=== PATIENT | female | born 1955 | race Caucasian/White ===

== ENCOUNTER 2018-07-28 06:55 | Inpatient (IN) | payer MEDICARE, OTHER ==
[2018-07-28 08:06] LABS: #Lymphocytes 0.7 thou/uL (1.20-3.40); #Monocytes 0.3 thou/uL (0.11-0.59); #Neutrophils 6.5 thou/uL (1.40-6.50); %Basophils 0.3 % (0.0-1.0); %Eosinophils 0.5 % (0.0-10.0); %Lymphocytes 9.7 % (21.0-51.0); %Monocytes 4.4 % (0.0-10.0); %Neutrophils 85.1 % (42.0-75.0); Mean Corpuscular HGB CONC 34.5 g/dL (32.0-36.0); Mean Corpuscular Hemoglobin 33.2 pg (27.0-31.0); Mean Corpuscular Volume 96.1 fL (78.0-98.0); Mean Platelet Volume 6.1 fL (7.4-10.4); Platelet Count 330 thou/uL (130-400); RBC Distribution Width 13.2 % (11.5-14.5); Red Blood Cell (RBC) Count 3.92 mill/uL (4.20-5.40); White Blood Cell (WBC) Count 7.6 thou/uL (4.8-10.8)
[2018-07-28 08:24] LABS: ALT (SGPT) 15 U/L (8-55); AST (SGOT) 23 U/L (5-34); Albumin 4.1 g/dL (3.4-4.8); Alkaline Phosphatase 103 U/L (40-150); Anion Gap 16 mmol/L (10-20); BUN (Urea Nitrogen) 16 mg/dL (9.8-20.1); Bilirubin, Total 0.5 mg/dL (0.2-1.2); Calc. Creatinine Clearance 0 mL/min (70-130); Calcium 9.3 mg/dL (7.8-10.44); Carbon Dioxide 22 mmol/L (23-31); Chloride 105 mmol/L (98-107); Estimated GFR-MDRD 79; Globulin 2.9 g/dL (2.4-3.5); Glucose 97 mg/dL (80-115); Potassium 4.1 mmol/L (3.5-5.1); Sodium 139 mmol/L (136-145)
[2018-07-28 08:25] LABS: Bilirubin Negative (Negative); Blood, Urine Small (Negative); Clarity CLOUDY (Clear); Glucose, Urine (Dipstick) Negative (Negative); Leukocyte Negative (Negative); Nitrite Negative (Negative); Protein, Urine (Dipstick) Negative (Neg-Trace); Specific Gravity, Urine 1.018 (1.002-1.036); Urobilinogen 0.2 mg/dL (0.2-1.0)
[2018-07-28 08:27] LABS: Bacteria/HPF None Seen HPF (None Seen)
[2018-07-28 08:57] LABS: Hyaline Casts/LPF 0-3 HYALINE CAST LPF (0-3 Hyaline); Manual Microscopic Reviewed? No Path Casts Seen; Renal Epithelial 0-3 HPF (0-3)
[2018-07-28] MEDS ORDERED: ISOVUE-370 76%-LOCM 1 ML ONE (10:16)
[2018-07-28] MEDS ORDERED: Gadobenate Dimeglumine 529 MG/1 ML (20ML VIAL) ONE (10:19)
--- NOTE | 2018-07-28 10:19 | CT ---
CT ANGIO OF HEAD PERFORMED WITH AND WITHOUT CONTRAST ENHANCEMENT CT ANGIO OF NECK PERFORMED WITH INTRAVENOUS CONTRAST ENHANCEMENT 3D RECONSTRUCTIONS: Date: 07/28/18 HISTORY: Left-sided weakness. FINDINGS: The lung apices are clear. The thyroid gland appears unremarkable. No significant jugular chain adeno carlos manuel. Parotid and submandibular gland regions appear unremarkable. Parapharyngeal spaces are clear. Angiographic portion of the examination yielded a satisfactory study. There is a separate origin of t he left common carotid artery from the aortic arch. The vertebral arteries are fairly codominant, lef t slightly larger than the right. On the right side, the right common internal and external iliac arteries are normal in appearance. No evidence of any significant stenosis by NASCET criteria. The left common carotid artery, internal and external carotid arteries also show no evidence of any s ignificant narrowing. CT angio of head was performed with intravenous contrast enhancement with 3D reconstructions. The ant erior and middle cerebral arteries and their branches are normal in appearance. Vertebrobasilar syste m appears unremarkable. There appears to be a complete samish of [place] present. CT of head was performed without contrast enhancement. The ventricular and cisternal system is within normal limits for age. No intracerebral hemorrhage or extra-axial fluid collections. IMPRESSION: Essentially unremarkable CT angio of head and neck. POS: [facility]
[2018-07-28] MEDS ORDERED: Ondansetron PF 4 MG/2 ML Vial ONE (10:51)
[2018-07-28] MEDS ORDERED: Bisacodyl 5 MG TAB PO PRN (11:11)
[2018-07-28] MEDS ORDERED: Senokot S 8.6-50 MG TAB PO PRN (11:11)
[2018-07-28] MEDS ORDERED: Acetaminophen 325 MG TAB PO PRN (11:11)
[2018-07-28] MEDS ORDERED: Ondansetron PF 4 MG/2 ML Vial IVP PRN (11:11)
[2018-07-28] MEDS ORDERED: Calcium Carbonate 500 MG ChewTAB PO PRN (11:11)
[2018-07-28] MEDS ORDERED: Aspirin 325 mg Enteric Coated Tablet PO SCH (11:15)
[2018-07-28] MEDS ORDERED: Enoxaparin Sodium 40 MG/0.4 ML SYRINGE SC SCH (11:15)
[2018-07-28] MEDS ORDERED: Nitroglycerin 0.4 MG TAB (25 Tab Bottle) SL PRN (12:18)
[2018-07-28] MEDS ORDERED: Benzonatate 100 MG CAP PO PRN (12:18)
[2018-07-28] MEDS ORDERED: Sodium Chloride 0.65% Nasal 44 ML BOT EA NARE PRN (12:18)
[2018-07-28] MEDS ORDERED: cloNIDine 0.1 MG TAB PO PRN (12:18)
[2018-07-28] MEDS ORDERED: hydrALAZINE 20 MG/ML VIAL SLOW IVP PRN (12:18)
[2018-07-28] MEDS ORDERED: Diabetic Tussin 200 MG/10 ML UDCUP PO PRN (12:18)
[2018-07-28] MEDS ORDERED: Pantoprazole 40 MG VIAL IVP SCH (12:30)
[2018-07-28] MEDS ORDERED: azaTHIOprine 50 MG TAB PO SCH (12:30)
--- NOTE | 2018-07-28 13:11 | HP ---
PRIMARY CARE PHYSICIAN: Dr. Sung. CHIEF COMPLAINT: Left-sided weakness, nausea, and vomiting. HISTORY OF PRESENTING ILLNESS: Ms. Sosa is a 63-year-old female with past medical history of well-controlled ulcerative colitis, who presented to the [facility] with above-mentioned complaint of 1-day duration. History is mainly obtained by the patient herself, and electronic medical records have been reviewed. Ms. Sosa reports that she has been in her usual health up until the day before yesterday. She had some upset stomach yesterday, and then she started to have significant nausea and then she started to have vomiting. She became generalized weak and later noticed that her left side is weaker than the right side. With these symptoms, she was also having some associated dizziness and lightheadedness. No chest pain or recent illnesses. No shortness of breath. No lower extremity swelling. She denies any trouble with her swallowing. She did notice that her speech was somewhat slurred as well. When presented to outside emergency room, her blood pressure was 161/83, pulse of 78. Otherwise, she was hemodynamically stable. She underwent a 12-lead EKG, which was unremarkable. She was transferred to our facility for further workup after initial treatment with saline, IV fluid, and Zofran. She underwent a CT angio of the head and neck in our facility with her complaints of left-sided isolated weakness more than generalized weakness. This was unremarkable. She is now being admitted to rule out stroke with suspected TIA. PAST MEDICAL HISTORY: 1. Ulcerative colitis, in good control. She takes Lialda and azathioprine. 2. Hypothyroidism. 3. Hypertension. PAST SURGICAL HISTORY: 1. Ganglion cyst removal, right wrist, in April 1987. 2. Ovarian cyst removal in 1987. 3. Colonoscopies, she is due for next one. Her watch and clock maker and repairer is Dr. Mazariegos. PSYCHIATRIC HISTORY: No anxiety. No depression. SOCIAL HISTORY: She works in [employer] three times a week. Lives by herself. No history of drug, tobacco, or alcohol abuse. FAMILY HISTORY: Significant for stroke in both of her parents according to her. No family history of diabetes. Multiple family members with hypertension. ALLERGIES: SULFONAMIDES. CURRENT MEDICATIONS: 1. Azathioprine 150 mg daily. 2. Enalapril 10 mg daily. 3. Levothyroxine 50 mcg daily. 4. Mesalamine 1.2 g four tablets daily. REVIEW OF SYSTEMS: A 12-point review of system is done. It is negative except for those mentioned in the history and physical. LABORATORY DATA: Her CBC is within normal limit. She has neutrophilia with normal WBCs. ESR is 20. Serum chemistry is rather unremarkable. CRP is slightly elevated to 0.65. Urinalysis shows trace ketones and some wbc's without any bacteria. Multiple squamous and transitional epithelial cells were also seen. CT angio is negative for any evidence of stenosis or block. It is done for head as well as neck. A 12-lead EKG by my review shows no acute ST or T-wave changes. Normal sinus rhythm is seen. PHYSICAL EXAMINATION: VITAL SIGNS: Upon presentation, blood pressure 161/83, pulse of 78, respirations 16, saturating 95% on room air, and temperature 98.4. GENERAL: No acute distress. Awake, alert, and oriented x3. The patient does exhibit some tangential thinking and rambles on and is somewhat slow in answering the questions appropriately. HEENT: Mucous membrane is moist and pink. No oropharyngeal exudate or erythema. Head is normocephalic and atraumatic. Pupils equal, reactive to light and accommodation. NECK: Supple without any lymphadenopathy, JVD, or bruit. CHEST: Clear to auscultation without any wheezing, rales, or rhonchi. HEART: Rate and rhythm are regular without any murmurs, rubs, or gallops. ABDOMEN: Soft, nontender, and nondistended. No guarding, rebound, or rigidity. EXTREMITIES: Free of any cyanosis, clubbing, or edema. NEUROLOGICAL: She does have mild facial droop on the left side and somewhat obscuration of the left nasolabial fold. Her left arm strength is 4/5. She has weakness in the hand sub arc operator. Her left leg is also weaker more than the right. Strength is 3 to 4/5 in left leg. There is no weakness in the right side. Cranial nerve II through XII otherwise grossly intact. Finger-nose testing is slow. IMPRESSION AND PLAN: 1. Left-sided weakness. The patient's physical examination is concerning for a transient ischemic attack. We will admit her to stroke floor and do the stroke workup with a neurology consultation as well as stroke team consultation. We will put her on daily aspirin and obtain an echocardiogram and MRI as well. She will be started on gentle IV fluids given her nausea and vomiting. 2. Nausea and vomiting. Suspect a viral gastroenteritis type picture, which brought on the generalized weakness. We will start her on normal saline for hydration and use supportive and symptomatic care. 3. History of ulcerative colitis. We will restart her home medications once confirmed. 4. Hypertension. Restart home medications, but allow for permissive hypertension. 5. Hypothyroidism. We will restart her levothyroxine. 6. Deep venous thrombosis and gastrointestinal prophylaxis and p.r.n. medication orders. DISPOSITION: Ms. Sosa is being admitted to the hospital for TIA-like symptoms with left-sided weakness. Further management will depend upon her clinical course as well as the results of MRI, echocardiogram, and recommendations from neurology team. Currently, she is under observation status. Job ID: [id number]
[2018-07-28] MEDS ORDERED: Lorazepam 2 MG/ML VIAL ONE (13:52)
[2018-07-28] MEDS ORDERED: Aspirin 325 MG TAB ONE (14:44)
[2018-07-28] MEDS ORDERED: Enoxaparin Sodium 40 MG/0.4 ML SYRINGE ONE (14:44)
--- NOTE | 2018-07-28 15:14 | MRI ---
MRI BRAIN WITH AND WITHOUT IV CONTRAST: Date: 07/28/18 PROVIDED CLINICAL HISTORY: Left-sided weakness. FINDINGS: There is a focal area of restricted diffusion seen involving the right hemipons compatible with recen t infarction. No additional restricted diffusion is evident. Scattered punctate FLAIR and T2 hyperint ensity involves the cerebral white matter with confluent periventricular white matter hyperintensity compatible with chronic microvascular ischemic change. No evidence for intracranial hemorrhage. Appro priate flow-voids are seen within the major intracranial vessels. The extracranial soft tissues and c alvarial marrow signal demonstrate no significant abnormality. There is no abnormal contrast enhancem ent identified. IMPRESSION: 1. Restricted diffusion compatible with recent infarction involving the right hemipons. 2. Chronic microvascular ischemic change. POS: [facility]
--- NOTE | 2018-07-28 15:29 | CON ---
DATE OF CONSULTATION: 07/28/2018 CHIEF COMPLAINT: Acute stroke. HISTORY OF PRESENT ILLNESS: The patient is a 63-year-old lady, who has history of hypertension, ulcerative colitis, and thyroid dysfunction. She reported she started feeling dizzy and nauseous and went to the emergency room yesterday afternoon, and she reported to the ER doctor that she was having dizziness and nausea, but she also felt kind of weak in general, and she was seen there and initially she had hypertension and subsequently her blood pressure normalized and she was feeling better. Dizziness was better and the CT was performed, which did not show any acute stroke and therefore, she was discharged home. Yesterday, she reports she got worse when she got home and kept getting worse. She also has a neck pain on the right side. She then subsequently developed weakness on the left side and slurred speech. She never had a stroke in the past. She is generally quite healthy. No known history of dizziness or visual disturbance today. FAMILY HISTORY: Positive for her father passing away from an HI at 69. Mother of CVA at 92. She has 4 brothers and a sister. Sister has hypertension. PAST MEDICAL HISTORY: She has hypertension, ulcerative colitis, and hypothyroidism. HOME MEDICATIONS: She takes: 1. Thyroxine. 2. Mesalamine. 3. Vasotec. PAST SURGICAL HISTORY: Ganglion cyst removal in right wrist, ovariectomy on the right side in April 1987 and left-sided in August 1987, and she has had a few colonoscopies over the years. SOCIAL HISTORY: She is a retired animal care worker. Works part-time at [employer]. She lives by herself. She was at age of 21. Her son is 47 and is in senior living from what she knows he is quite healthy. LABORATORY WORKUP: White count 7.6, hemoglobin 13, hematocrit 37.7, platelet count 330. Sodium 139, potassium 4.1, chloride 105, bicarb 22, BUN 16, creatinine 0.74. UA was negative, and her MRI has been completed and pending final report at the time of this dictation. REVIEW OF SYSTEMS: PULMONARY: Normal. CARDIAC: Normal. GI: Positive for nausea yesterday. NEUROLOGIC: Positive for weakness and dizziness. GENITOURINARY: Negative. DERMATOLOGIC: Negative. ENDOCRINE: Positive for thyroid dysfunction. PHYSICAL EXAMINATION: GENERAL APPEARANCE: Well-built, well-nourished lady, who seems comfortable. Appears comfortable, but seems to be somewhat tired. VITAL SIGNS: Her blood pressure 161/83, pulse 78, respiration rate 16, O2 sats 95% on room air, and temperature 98.4. CHEST: Clear vesicular breathing. CARDIOVASCULAR: No murmurs were found. ABDOMEN: Soft and nontender. NEUROLOGIC: Higher intellectual function, awake and oriented x3. Appropriate conversation. Cranial nerves 2 through 12, normal pupillary reaction. She has mild facial asymmetry on the left side and she has tongue deviation to the left. Motor examination, bulk normal, tone normal, strength 4/5 in the right lower extremity and 5/5 in the right upper extremity. In the left arm, she had decreased strength of 1/5 and distal left lower extremity strength was 2/5 and proximal 3/5. There was some decreased effort based on our RN's evaluation since this is a telemedicine consult. Deep tendon reflexes were 2+ throughout. Sensory, normal touch and proprioception and her cerebellar, normal [id number]. [id number] could not be performed. [id number] could not be performed on the left side. Gait not testable. IMPRESSION: The patient with dizziness yesterday and she has had some left- sided weakness after she left the ER and went home and comes back to the hospital today. Due to the delay in presentation, no IV tPA was given and her MRI was completed , but pending report at this time. She has hypertension, hypothyroidism, and ulcerative colitis. She does not take aspirin at home. Her neurological examination showed weakness on the left side, but there was also decreased effort on the left side. MRI of brain report is pending, but it seems to show some white matter changes, and we will await on the official read to see if there is any acute infarct. RECOMMENDATIONS: Please start the patient on aspirin. Complete her stroke workup. If MRI brain is negative for acute infarct, please consider adding MRI of the C-spine to make sure any structural lesions are excluded. Call Neurology if there are any further questions. Job ID: [id number] [facility]
[2018-07-28 18:38] VITALS: BMI 37.4
[2018-07-28] MEDS: Atorvastatin Calcium 40 MG TAB PO SCH ×2 (21:58→22:13)
[2018-07-28] MEDS: Sodium Chloride 0.9% 1,000 ML IV SCH (21:58)
[2018-07-29] MEDS: Sodium Chloride 0.9% 1,000 ML IV SCH (00:08)
[2018-07-29] MEDS: Acetaminophen 500 MG TAB PO PRN ×3 (04:57→21:23)
[2018-07-29 05:25] LABS: Anion Gap 14 mmol/L (10-20); BUN (Urea Nitrogen) 12 mg/dL (9.8-20.1); Calc. Creatinine Clearance 114 mL/min (70-130); Calcium 8.6 mg/dL (7.8-10.44); Carbon Dioxide 22 mmol/L (23-31); Chloride 109 mmol/L (98-107); Estimated GFR-MDRD 84; Glucose 93 mg/dL (80-115); Potassium 3.5 mmol/L (3.5-5.1); Sodium 141 mmol/L (136-145)
[2018-07-29 05:26] LABS: Cardiac Risk 3.5 (Less than 4.5)
[2018-07-29] MEDS ORDERED: MESALAMINE 1.2 GM PO SCH (09:00)
[2018-07-29] MEDS ORDERED: Prevnar 13-Val Conj/PF 0.5 ML SYRINGE IM ONE (09:00)
[2018-07-29] MEDS ORDERED: Pantoprazole 40 MG VIAL IVP SCH (09:00)
[2018-07-29] MEDS ORDERED: azaTHIOprine 50 MG TAB PO SCH (09:00)
[2018-07-29] MEDS: Aspirin 325 mg Enteric Coated Tablet PO SCH (09:04)
[2018-07-29] MEDS: Mesalamine DR 400 mg Capsule PO SCH (09:04)
[2018-07-29] MEDS: Enoxaparin Sodium 40 MG/0.4 ML SYRINGE SC SCH (09:04)
--- NOTE | 2018-07-29 10:51 | PDOC.PN ---
- Subjective Encounter Start Date: 07/29/18 Encounter Start Time: 10:48 Subjective: still feels weak but no new complaints -: able to eat .no CP/SOB. -: left side remains weak - Objective MAR Reviewed: Yes Vital Signs & Weight: Vital Signs (12 hours) Temp Pulse Resp BP BP Pulse Ox 07/29/18 08:57 97 07/29/18 07:35 98.6 F 67 18 157/74 H 97 07/29/18 03:00 98.9 F 69 20 132/74 97 07/29/18 00:10 173/82 H 07/28/18 23:10 98.6 F 84 16 173/82 H 100 Weight Weight 198 lb 1 oz I&O: 07/28/18 07/29/18 07/30/18 06:59 06:59 06:59 Intake Total 1100 Output Total 150 Balance 950 Result Diagrams: 07/28/18 07:55 07/29/18 04:51 Radiology Reviewed by me: Yes (MRI brain- R sided CVA.ECHO-mild diastolic dysFx) Phys Exam - Physical Examination Constitutional: NAD HEENT: PERRLA, moist MMs, sclera anicteric, oral pharynx no lesions, 2+ tonsils Neck: no nodes, no JVD, supple, full ROM Respiratory: no wheezing, no rales, no rhonchi, clear to auscultation bilateral Cardiovascular: RRR, no significant murmur, no rub Gastrointestinal: soft, non-tender, no distention Musculoskeletal: no edema, pulses present Left hemiparesis,slow speech Psychiatric: normal affect, A&O x 3 Dx/Plan (1) Acute CVA (cerebrovascular accident) Code(s): I63.9 - CEREBRAL INFARCTION, UNSPECIFIED Status: Acute (2) HTN (hypertension) Code(s): I10 - ESSENTIAL (PRIMARY) HYPERTENSION Status: Chronic (3) Ulcerative colitis Code(s): K51.90 - ULCERATIVE COLITIS, UNSPECIFIED, WITHOUT COMPLICATIONS Status: Chronic (4) Immunocompromised state due to drug therapy Code(s): Z79.899 - OTHER [employer] (CURRENT) DRUG THERAPY Status: Chronic - Plan PT/OT, DVT proph w/SCDs cont ASA,statin.HD stable.Monitor BP,allowing permissive HTN -: DC IVF.able to eat and drink -: SNIF eval.DC when arranged * . Review of Systems - Review of Systems Constitutional: weakness, malaise. negative: fever, chills, sweats, other ENT: negative: Ear Pain, Ear Discharge, Nose Pain, Nose Discharge, Nose Congestion, Mouth Pain, Mouth Swelling, Throat Pain, Throat Swelling, Other Respiratory: negative: Cough, Dry, Shortness of Breath, Hemoptysis, SOB with Excertion, Pleuritic Pain, Sputum, Wheezing Cardiovascular: negative: chest pain, palpitations, orthopnea, paroxysmal nocturnal dyspnea, edema, light headedness, other Gastrointestinal: negative: Nausea, Vomiting, Abdominal Pain, Diarrhea, Constipation, Melena, Hematochezia, Other Genitourinary: negative: Dysuria, Frequency, Incontinence, Hematuria, Retention , Other Musculoskeletal: negative: Neck Pain, Shoulder Pain, Arm Pain, Back Pain, Hand Pain, Leg Pain, Foot Pain, Other Neurological: Weakness. negative: Numbness, Incoordination, Change in Speech, Confusion, Seizures, Other - Medications/Allergies Allergies/Adverse Reactions: Allergies Allergy/AdvReac Type Severity Reaction Status Date / Time Sulfa (Sulfonamide Allergy Verified 07/28/18 11:41 Antibiotics) Medications: Current Medications Acetaminophen (Tylenol) 1,000 mg PO Q6H PRN PRN Reason: Mild Pain (1-3) Last Admin: 07/29/18 04:57 Dose: 1,000 mg Aspirin (Ecotrin) 325 mg PO DAILY [facility] Last Admin: 07/29/18 09:04 Dose: 325 mg Atorvastatin Calcium (Lipitor) 40 mg PO [facility] Last Admin: 07/28/18 22:13 Dose: 40 mg Azathioprine (Imuran) 150 mg PO DAILY [facility] Last Admin: 07/29/18 09:04 Dose: 150 mg Benzonatate (Tessalon) 100 mg PO Q6H PRN PRN Reason: Cough Bisacodyl (Dulcolax) 10 mg PO DAILYPRN PRN PRN Reason: Constipation Calcium Carbonate (Tums) 1,000 mg PO Q4H PRN PRN Reason: Heartburn or Indigestion Clonidine (Catapres) 0.1 mg PO Q4H PRN PRN Reason: SBP >160 ____ Last Admin: 07/29/18 00:10 Dose: 0.1 mg Enalapril Maleate (Vasotec) 10 mg PO [facility] Enoxaparin Sodium (Lovenox) 40 mg SC 0900 [facility] Last Admin: 07/29/18 09:04 Dose: 40 mg Guaifenesin (Robitussin Sf) 200 mg PO Q4H PRN PRN Reason: Cough Hydralazine HCl (Apresoline) 10 mg SLOW IVP Q4H PRN PRN Reason: SBP > 180 and HR < 70 Sodium Chloride (Normal Saline 0.9%) 1,000 mls @ 75 mls/hr IV .[id number] [facility] Last Admin: 07/29/18 00:08 Dose: 1,000 mls Levothyroxine Sodium (Synthroid) 50 mcg PO [facility] Mesalamine (Delzicol Dr) 1,200 mg PO DAILY [facility] Last Admin: 07/29/18 09:04 Dose: 1,200 mg Nitroglycerin (Nitrostat) 0.4 mg SL Q5MIN PRN PRN Reason: Chest Pain Ondansetron HCl (Zofran) 4 mg IVP Q6H PRN PRN Reason: Nausea/Vomiting Pantoprazole Sodium (Protonix) 40 mg IVP DAILY [facility] Last Admin: 07/29/18 09:03 Dose: 40 mg Senna/Docusate Sodium (Senokot S) 2 tab PO BID PRN PRN Reason: Constipation Sodium Chloride (Flush - Normal Saline) 10 ml IVF PRN PRN PRN Reason: Saline Flush Sodium Chloride ([place] Nasal [place] 0.65%) 0 ml EA NARE QIDPRN PRN PRN Reason: Nasal Congestion
[2018-07-29] MEDS: Levothyroxine Sodium 50 MCG TAB PO SCH (21:17)
[2018-07-29] MEDS ORDERED: Atorvastatin Calcium 40 MG TAB PO SCH (21:30)
[2018-07-30] MEDS: Acetaminophen 500 MG TAB PO PRN (03:34)
[2018-07-30] MEDS ORDERED: hydrALAZINE 20 MG/ML VIAL SLOW IVP PRN (08:52)
[2018-07-30] MEDS: Enoxaparin Sodium 40 MG/0.4 ML SYRINGE SC SCH (08:58)
[2018-07-30] MEDS: traMADol HCl 50 MG TAB PO PRN ×2 (08:59→13:29)
[2018-07-30] MEDS: azaTHIOprine 50 MG TAB PO SCH (08:59)
[2018-07-30] MEDS: Aspirin 325 mg Enteric Coated Tablet PO SCH (08:59)
[2018-07-30] MEDS: Mesalamine DR 400 mg Capsule PO SCH (08:59)
--- NOTE | 2018-07-30 14:59 | PDOC.PN ---
- Subjective Encounter Start Date: 07/30/18 Encounter Start Time: 14:57 Subjective: feels better but left side still weak -: c/o back pain - Objective MAR Reviewed: Yes Vital Signs & Weight: Vital Signs (12 hours) Temp Pulse Pulse Pulse Resp BP BP 07/30/18 12:00 98.2 F 60 20 07/30/18 09:21 62 60 167/77 H 159/72 H 07/30/18 08:59 07/30/18 08:00 98.4 F 62 20 07/30/18 04:04 98.5 F 64 19 BP Pulse Ox 07/30/18 12:00 160/77 H 96 07/30/18 09:21 07/30/18 08:59 95 07/30/18 08:00 176/81 H 95 07/30/18 04:04 174/79 H 96 Weight Weight 198 lb 1 oz I&O: 07/29/18 07/30/18 07/31/18 06:59 06:59 06:59 Intake Total 1100 750 Output Total 150 1850 Balance 950 -1100 Result Diagrams: 07/28/18 07:55 07/29/18 04:51 Phys Exam - Physical Examination Constitutional: NAD HEENT: PERRLA, moist MMs, sclera anicteric, oral pharynx no lesions Neck: no nodes, no JVD, supple, full ROM Respiratory: no wheezing, no rales, no rhonchi, clear to auscultation bilateral Cardiovascular: RRR, no significant murmur, no rub Gastrointestinal: soft, non-tender, no distention, positive bowel sounds Musculoskeletal: no edema, pulses present left hemiparesis Psychiatric: normal affect, A&O x 3 Skin: no rash Dx/Plan (1) Acute CVA (cerebrovascular accident) Code(s): I63.9 - CEREBRAL INFARCTION, UNSPECIFIED Status: Acute Comment: on ASA,statin. (2) HTN (hypertension) Code(s): I10 - ESSENTIAL (PRIMARY) HYPERTENSION Status: Chronic Comment: restart enalapril (3) Ulcerative colitis Code(s): K51.90 - ULCERATIVE COLITIS, UNSPECIFIED, WITHOUT COMPLICATIONS Status: Chronic (4) Immunocompromised state due to drug therapy Code(s): Z79.899 - OTHER [facility] (CURRENT) DRUG THERAPY Status: Chronic - Plan PT/OT, DVT proph w/SCDs cont OT/PT.ASA,statin -: home meds as below. -: BP on higher side. if still high,add norvasc.cont [facility] -: Awaiting rehab placement.stable * . Review of Systems - Review of Systems Constitutional: negative: fever, chills, sweats, weakness, malaise, other ENT: negative: Ear Pain, Ear Discharge, Nose Pain, Nose Discharge, Nose Congestion, Mouth Pain, Mouth Swelling, Throat Pain, Throat Swelling, Other Respiratory: negative: Cough, Dry, Shortness of Breath, Hemoptysis, SOB with Excertion, Pleuritic Pain, Sputum, Wheezing Cardiovascular: negative: chest pain, palpitations, orthopnea, paroxysmal nocturnal dyspnea, edema, light headedness, other Gastrointestinal: negative: Nausea, Vomiting, Abdominal Pain, Diarrhea, Constipation, Melena, Hematochezia, Other Genitourinary: negative: Dysuria, Frequency, Incontinence, Hematuria, Retention , Other Musculoskeletal: Back Pain. negative: Neck Pain, Shoulder Pain, Arm Pain, Hand Pain, Leg Pain, Foot Pain, Other Neurological: Weakness - Medications/Allergies Allergies/Adverse Reactions: Allergies Allergy/AdvReac Type Severity Reaction Status Date / Time Sulfa (Sulfonamide Allergy Verified 07/28/18 11:41 Antibiotics) Medications: Current Medications Acetaminophen (Tylenol) 1,000 mg PO Q6H PRN PRN Reason: Mild Pain (1-3) Last Admin: 07/30/18 03:34 Dose: 1,000 mg Aspirin (Ecotrin) 325 mg PO DAILY [facility] Last Admin: 07/30/18 08:59 Dose: 325 mg Atorvastatin Calcium (Lipitor) 40 mg PO [facility] Last Admin: 07/28/18 22:13 Dose: 40 mg Azathioprine (Imuran) 50 mg PO DAILY [facility] Last Admin: 07/30/18 08:59 Dose: 50 mg Benzonatate (Tessalon) 100 mg PO Q6H PRN PRN Reason: Cough Bisacodyl (Dulcolax) 10 mg PO DAILYPRN PRN PRN Reason: Constipation Calcium Carbonate (Tums) 1,000 mg PO Q4H PRN PRN Reason: Heartburn or Indigestion Enalapril Maleate (Vasotec) 10 mg PO [facility] Last Admin: 01/21/19 21:17 Dose: 10 mg Enoxaparin Sodium (Lovenox) 40 mg SC 0900 [facility] Last Admin: 07/30/18 08:58 Dose: 40 mg Guaifenesin (Robitussin Sf) 200 mg PO Q4H PRN PRN Reason: Cough Hydralazine HCl (Apresoline) 10 mg SLOW IVP Q4H PRN PRN Reason: SBP > 170 and HR < 70 Levothyroxine Sodium (Synthroid) 50 mcg PO HS [facility] Last Admin: 07/29/18 21:17 Dose: 50 mcg Mesalamine (Delzicol Dr) 1,200 mg PO DAILY [facility] Last Admin: 07/30/18 08:59 Dose: 1,200 mg Nitroglycerin (Nitrostat) 0.4 mg SL Q5MIN PRN PRN Reason: Chest Pain Ondansetron HCl (Zofran) 4 mg IVP Q6H PRN PRN Reason: Nausea/Vomiting Pantoprazole Sodium (Protonix) 40 mg PO DAILY [facility] Last Admin: 07/30/18 08:59 Dose: 40 mg Senna/Docusate Sodium (Senokot S) 2 tab PO BID PRN PRN Reason: Constipation Sodium Chloride (Flush - Normal Saline) 10 ml IVF PRN PRN PRN Reason: Saline Flush Sodium Chloride ([place] Nasal [place] 0.65%) 0 ml EA NARE QIDPRN PRN PRN Reason: Nasal Congestion Tramadol HCl (Ultram) 50 mg PO Q4H PRN PRN Reason: Moderate to Severe Pain (6-10) Last Admin: 07/30/18 13:29 Dose: 50 mg
[2018-07-30] MEDS ORDERED: cloNIDine 0.1 MG TAB PO PRN (15:26)
[2018-07-30] MEDS ORDERED: Amlodipine 5 MG TAB PO SCH (15:30)
[2018-07-30] MEDS: Levothyroxine Sodium 50 MCG TAB PO SCH (20:27)
[2018-07-30] MEDS: Atorvastatin Calcium 40 MG TAB PO SCH (20:27)
[2018-07-31] MEDS: traMADol HCl 50 MG TAB PO PRN ×2 (03:38→08:29)
[2018-07-31] MEDS: Lidocaine 5% Patch TD SCH (05:48)
[2018-07-31] MEDS: Mesalamine DR 400 mg Capsule PO SCH (08:24)
[2018-07-31] MEDS: azaTHIOprine 50 MG TAB PO SCH (08:25)
[2018-07-31] MEDS: Enoxaparin Sodium 40 MG/0.4 ML SYRINGE SC SCH (08:26)
[2018-07-31] MEDS: Aspirin 325 mg Enteric Coated Tablet PO SCH (08:26)
[2018-07-31] MEDS ORDERED: Amlodipine 5 MG TAB PO SCH (09:00)
[2018-07-31] MEDS: Amlodipine 5 MG TAB PO SCH ×2 (09:03→21:36)
[2018-07-31] MEDS ORDERED: Ondansetron ORAL SOLN. 4 MG/5 ML UDCUP PO PRN (10:42)
--- NOTE | 2018-07-31 14:50 | PDOC.PN ---
- Subjective Encounter Start Date: 07/31/18 Encounter Start Time: 14:48 Subjective: feels well. still not able to use left side - Objective MAR Reviewed: Yes Vital Signs & Weight: Vital Signs (12 hours) Temp Pulse Pulse Pulse Resp BP BP 07/31/18 11:48 98.2 F 72 16 07/31/18 09:25 68 86 139/81 07/31/18 09:03 73 177/84 H 07/31/18 08:25 73 177/84 H 07/31/18 07:44 97.6 F 73 16 07/31/18 04:00 99.8 F H 68 18 BP BP Pulse Ox 07/31/18 11:48 140/87 95 07/31/18 09:25 194/86 H 07/31/18 09:03 07/31/18 08:25 07/31/18 07:44 177/84 H 96 07/31/18 04:00 169/80 H 94 L Weight Weight 198 lb 1 oz I&O: 07/30/18 07/31/18 08/01/18 06:59 06:59 06:59 Intake Total 750 877 Output Total 1850 [facility] Balance -1100 1094 Result Diagrams: 07/28/18 07:55 07/29/18 04:51 Phys Exam - Physical Examination Constitutional: NAD HEENT: PERRLA, moist MMs, sclera anicteric, oral pharynx no lesions Neck: no nodes, no JVD, supple, full ROM Respiratory: no wheezing, no rales, no rhonchi, clear to auscultation bilateral Cardiovascular: RRR, no significant murmur, no rub Gastrointestinal: soft, non-tender, no distention, positive bowel sounds Musculoskeletal: no edema, pulses present left hemiparesis Psychiatric: normal affect, A&O x 3 Skin: no rash Dx/Plan (1) Acute CVA (cerebrovascular accident) Code(s): I63.9 - CEREBRAL INFARCTION, UNSPECIFIED Status: Acute Comment: on ASA,statin. (2) HTN (hypertension) Code(s): I10 - ESSENTIAL (PRIMARY) HYPERTENSION Status: Chronic Comment: restart enalapril (3) Ulcerative colitis Code(s): K51.90 - ULCERATIVE COLITIS, UNSPECIFIED, WITHOUT COMPLICATIONS Status: Chronic (4) Immunocompromised state due to drug therapy Code(s): Z79.899 - OTHER USP (CURRENT) DRUG THERAPY Status: Chronic - Plan PT/OT, DVT proph w/SCDs increase norvasc as BP still high.cont Vasotec -: cont ASA+statin -: awaiting rehab placement,hemodynamically stable * . Review of Systems - Review of Systems Constitutional: negative: fever, chills, sweats, weakness, malaise, other ENT: negative: Ear Pain, Ear Discharge, Nose Pain, Nose Discharge, Nose Congestion, Mouth Pain, Mouth Swelling, Throat Pain, Throat Swelling, Other Respiratory: negative: Cough, Dry, Shortness of Breath, Hemoptysis, SOB with Excertion, Pleuritic Pain, Sputum, Wheezing Cardiovascular: negative: chest pain, palpitations, orthopnea, paroxysmal nocturnal dyspnea, edema, light headedness, other Gastrointestinal: negative: Nausea, Vomiting, Abdominal Pain, Diarrhea, Constipation, Melena, Hematochezia, Other Genitourinary: negative: Dysuria, Frequency, Incontinence, Hematuria, Retention , Other Musculoskeletal: negative: Neck Pain, Shoulder Pain, Arm Pain, Back Pain, Hand Pain, Leg Pain, Foot Pain, Other Neurological: negative: Weakness, Numbness, Incoordination, Change in Speech, Confusion, Seizures, Other - Medications/Allergies Allergies/Adverse Reactions: Allergies Allergy/AdvReac Type Severity Reaction Status Date / Time Sulfa (Sulfonamide Allergy Verified 07/28/18 11:41 Antibiotics) Medications: Current Medications Acetaminophen (Tylenol) 1,000 mg PO Q6H PRN PRN Reason: Mild Pain (1-3) Last Admin: 07/30/18 03:34 Dose: 1,000 mg Amlodipine Besylate (Norvasc) 5 mg PO BID [facility] Last Admin: 07/31/18 09:03 Dose: Not Given Aspirin (Ecotrin) 325 mg PO DAILY [facility] Last Admin: 07/31/18 08:26 Dose: 325 mg Atorvastatin Calcium (Lipitor) 40 mg PO HS [facility] Last Admin: 07/30/18 20:27 Dose: 40 mg Azathioprine (Imuran) 50 mg PO DAILY [facility] Last Admin: 07/31/18 08:25 Dose: 50 mg Benzonatate (Tessalon) 100 mg PO Q6H PRN PRN Reason: Cough Bisacodyl (Dulcolax) 10 mg PO DAILYPRN PRN PRN Reason: Constipation Calcium Carbonate (Tums) 1,000 mg PO Q4H PRN PRN Reason: Heartburn or Indigestion Clonidine (Catapres) 0.1 mg PO Q4H PRN PRN Reason: SBP>160 Cyclobenzaprine HCl (Flexeril) 10 mg PO TID PRN PRN Reason: Muscle Spasm Enalapril Maleate (Vasotec) 10 mg PO HS [facility] Last Admin: 07/30/18 20:27 Dose: 10 mg Enoxaparin Sodium (Lovenox) 40 mg SC 0900 [facility] Last Admin: 07/31/18 08:26 Dose: 40 mg Guaifenesin (Robitussin Sf) 200 mg PO Q4H PRN PRN Reason: Cough Hydralazine HCl (Apresoline) 10 mg SLOW IVP Q4H PRN PRN Reason: SBP > 170 and HR < 70 Levothyroxine Sodium (Synthroid) 50 mcg PO HS [facility] Last Admin: 07/30/18 20:27 Dose: 50 mcg Lidocaine (Lidoderm 5% Patch) 1 patch TD 0600 [facility] Last Admin: 07/31/18 05:48 Dose: 1 patch Mesalamine (Delzicol Dr) 1,200 mg PO DAILY [facility] Last Admin: 07/31/18 08:24 Dose: 1,200 mg Miscellaneous Medication (Lidocaine Patch Removal) 1 each TOP 1800 [facility] Nitroglycerin (Nitrostat) 0.4 mg SL Q5MIN PRN PRN Reason: Chest Pain Ondansetron HCl (Zofran) 4 mg IVP Q6H PRN PRN Reason: Nausea/Vomiting Ondansetron HCl (Zofran) 4 mg PO Q6H PRN PRN Reason: Nausea/Vomiting Pantoprazole Sodium (Protonix) 40 mg PO DAILY [facility] Last Admin: 07/31/18 08:26 Dose: 40 mg Senna/Docusate Sodium (Senokot S) 2 tab PO BID PRN PRN Reason: Constipation Sodium Chloride (Flush - Normal Saline) 10 ml IVF PRN PRN PRN Reason: Saline Flush Sodium Chloride ([place] Nasal [place] 0.65%) 0 ml EA NARE QIDPRN PRN PRN Reason: Nasal Congestion Tramadol HCl (Ultram) 50 mg PO Q4H PRN PRN Reason: Moderate to Severe Pain (6-10) Last Admin: 07/31/18 08:29 Dose: 50 mg
[2018-07-31] MEDS: Lidocaine Patch Removal 1 EACH TOP SCH (18:47)
[2018-07-31] MEDS: Levothyroxine Sodium 50 MCG TAB PO SCH (21:35)
[2018-07-31] MEDS: Cyclobenzaprine 10 MG TAB PO PRN (21:35)
[2018-07-31] MEDS: Atorvastatin Calcium 40 MG TAB PO SCH (21:36)
[2018-08-01 05:15] LABS: #Eosinphils 0.1 thou/uL (0.0-0.7); #Lymphocytes 0.9 thou/uL (1.20-3.40); #Monocytes 0.7 thou/uL (0.11-0.59); #Neutrophils 5.9 thou/uL (1.40-6.50); %Basophils 0.1 % (0.0-1.0); %Eosinophils 1.6 % (0.0-10.0); %Lymphocytes 12.3 % (21.0-51.0); %Monocytes 8.5 % (0.0-10.0); %Neutrophils 77.6 % (42.0-75.0); Hemoglobin 13.5 g/dL (12.0-16.0); Mean Corpuscular HGB CONC 33.7 g/dL (32.0-36.0); Mean Corpuscular Hemoglobin 32.9 pg (27.0-31.0); Mean Corpuscular Volume 97.5 fL (78.0-98.0); Mean Platelet Volume 6.5 fL (7.4-10.4); Platelet Count 329 thou/uL (130-400); RBC Distribution Width 13.5 % (11.5-14.5); White Blood Cell (WBC) Count 7.6 thou/uL (4.8-10.8)
[2018-08-01] MEDS: Lidocaine 5% Patch TD SCH (05:58)
[2018-08-01 06:07] LABS: Anion Gap 17 mmol/L (10-20); BUN (Urea Nitrogen) 16 mg/dL (9.8-20.1); Calc. Creatinine Clearance 110 mL/min (70-130); Calcium 9.4 mg/dL (7.8-10.44); Carbon Dioxide 22 mmol/L (23-31); Chloride 102 mmol/L (98-107); Estimated GFR-MDRD 81; Glucose 92 mg/dL (80-115); Potassium 3.8 mmol/L (3.5-5.1); Sodium 137 mmol/L (136-145)
[2018-08-01] MEDS: traMADol HCl 50 MG TAB PO PRN ×2 (09:48→22:41)
[2018-08-01] MEDS: Enoxaparin Sodium 40 MG/0.4 ML SYRINGE SC SCH (09:49)
[2018-08-01] MEDS: Mesalamine DR 400 mg Capsule PO SCH (09:50)
[2018-08-01] MEDS: Amlodipine 5 MG TAB PO SCH ×2 (09:50→20:13)
[2018-08-01] MEDS: azaTHIOprine 50 MG TAB PO SCH (09:50)
[2018-08-01] MEDS: Aspirin 325 mg Enteric Coated Tablet PO SCH (09:51)
[2018-08-01] MEDS: Sodium Chloride 0.9% 1,000 ML IV SCH ×2 (11:18→22:44)
[2018-08-01] MEDS: Cyclobenzaprine 10 MG TAB PO PRN ×2 (11:18→20:13)
--- NOTE | 2018-08-01 15:13 | PDOC.PN ---
- Subjective Encounter Start Date: 08/01/18 Encounter Start Time: 15:11 Subjective: c/o neck and back pain,nausea and poor appetite -: left sided weakness persists -: was able to sit in chair for 4 hrs yesterday - Objective MAR Reviewed: Yes Vital Signs & Weight: Vital Signs (12 hours) Temp Pulse Pulse Pulse Resp BP BP 08/01/18 12:00 97.6 F 124 H 18 08/01/18 10:42 110 H 110 H 126/69 08/01/18 09:50 98 136/76 08/01/18 08:00 08/01/18 07:45 98.5 F 106 H 16 08/01/18 04:00 98.6 F 88 18 BP BP Pulse Ox 08/01/18 12:00 123/78 94 L 08/01/18 10:42 126/69 08/01/18 09:50 08/01/18 08:00 94 L 08/01/18 07:45 136/76 89 L 08/01/18 04:00 128/74 96 Weight Weight 198 lb 1 oz I&O: 07/31/18 08/01/18 08/02/18 06:59 06:59 06:59 Intake Total 877 770 Output Total 1975 800 Balance -1098 -30 Result Diagrams: 08/01/18 04:24 08/01/18 04:24 Phys Exam - Physical Examination Constitutional: NAD uncomfortable HEENT: PERRLA, moist MMs, sclera anicteric, oral pharynx no lesions Neck: no nodes, no JVD, supple, full ROM Respiratory: no wheezing, no rales, no rhonchi, clear to auscultation bilateral Cardiovascular: no significant murmur Gastrointestinal: soft, non-tender, no distention, positive bowel sounds Musculoskeletal: no edema, pulses present left hemiparesis Psychiatric: normal affect, A&O x 3 Skin: no rash Dx/Plan (1) Acute CVA (cerebrovascular accident) Code(s): I63.9 - CEREBRAL INFARCTION, UNSPECIFIED Status: Acute Comment: on ASA,statin. (2) HTN (hypertension) Code(s): I10 - ESSENTIAL (PRIMARY) HYPERTENSION Status: Chronic Comment: restart enalapril (3) Ulcerative colitis Code(s): K51.90 - ULCERATIVE COLITIS, UNSPECIFIED, WITHOUT COMPLICATIONS Status: Chronic (4) Immunocompromised state due to drug therapy Code(s): Z79.899 - OTHER NURSING HOME (CURRENT) DRUG THERAPY Status: Chronic - Plan PT/OT, out of bed/ambulate, DVT proph w/SCDs cont tramadol w flexeril .suspect Musculoskeletal pain -: ASA,statin -: awaiting rehab eval.HD stable. BP better contorlled now -: cont mesalamine and Imuran .monitor symptoms * . Review of Systems - Review of Systems Constitutional: weakness, malaise. negative: fever, chills, sweats, other Respiratory: negative: Cough, Dry, Shortness of Breath, Hemoptysis, SOB with Excertion, Pleuritic Pain, Sputum, Wheezing Cardiovascular: negative: chest pain, palpitations, orthopnea, paroxysmal nocturnal dyspnea, edema, light headedness, other Gastrointestinal: negative: Nausea, Vomiting, Abdominal Pain, Diarrhea, Constipation, Melena, Hematochezia, Other Genitourinary: negative: Dysuria, Frequency, Incontinence, Hematuria, Retention , Other Musculoskeletal: Neck Pain, Shoulder Pain, Back Pain Neurological: Weakness - Medications/Allergies Allergies/Adverse Reactions: Allergies Allergy/AdvReac Type Severity Reaction Status Date / Time Sulfa (Sulfonamide Allergy Verified 07/28/18 11:41 Antibiotics) Medications: Current Medications Acetaminophen (Tylenol) 1,000 mg PO Q6H PRN PRN Reason: Mild Pain (1-3) Last Admin: 07/30/18 03:34 Dose: 1,000 mg Amlodipine Besylate (Norvasc) 5 mg PO BID [facility] Last Admin: 08/01/18 09:50 Dose: 5 mg Aspirin (Ecotrin) 325 mg PO DAILY [facility] Last Admin: 08/01/18 09:51 Dose: 325 mg Atorvastatin Calcium (Lipitor) 40 mg PO HS [facility] Last Admin: 07/31/18 21:36 Dose: 40 mg Azathioprine (Imuran) 50 mg PO DAILY [facility] Last Admin: 08/01/18 09:50 Dose: 50 mg Benzonatate (Tessalon) 100 mg PO Q6H PRN PRN Reason: Cough Bisacodyl (Dulcolax) 10 mg PO DAILYPRN PRN PRN Reason: Constipation Calcium Carbonate (Tums) 1,000 mg PO Q4H PRN PRN Reason: Heartburn or Indigestion Clonidine (Catapres) 0.1 mg PO Q4H PRN PRN Reason: SBP>160 Cyclobenzaprine HCl (Flexeril) 10 mg PO TID PRN PRN Reason: Muscle Spasm Last Admin: 08/01/18 11:18 Dose: 10 mg Enalapril Maleate (Vasotec) 10 mg PO [facility] Last Admin: 07/31/18 21:36 Dose: 10 mg Enoxaparin Sodium (Lovenox) 40 mg SC 0900 [facility] Last Admin: 08/01/18 09:49 Dose: 40 mg Guaifenesin (Robitussin Sf) 200 mg PO Q4H PRN PRN Reason: Cough Hydralazine HCl (Apresoline) 10 mg SLOW IVP Q4H PRN PRN Reason: SBP > 170 and HR < 70 Sodium Chloride (Normal Saline 0.9%) 1,000 mls @ 75 mls/hr IV .[id number] [facility] Last Admin: 08/01/18 11:18 Dose: 1,000 mls Levothyroxine Sodium (Synthroid) 50 mcg PO [facility] Last Admin: 07/31/18 21:35 Dose: 50 mcg Lidocaine (Lidoderm 5% Patch) 1 patch TD 0600 [facility] Last Admin: 08/01/18 05:58 Dose: 1 patch Mesalamine (Delzicol Dr) 1,200 mg PO DAILY [facility] Last Admin: 08/01/18 09:50 Dose: 1,200 mg Miscellaneous Medication (Lidocaine Patch Removal) 1 each TOP 1800 [facility] Last Admin: 07/31/18 18:47 Dose: 1 each Nitroglycerin (Nitrostat) 0.4 mg SL Q5MIN PRN PRN Reason: Chest Pain Ondansetron HCl (Zofran) 4 mg IVP Q6H PRN PRN Reason: Nausea/Vomiting Ondansetron HCl (Zofran) 4 mg PO Q6H PRN PRN Reason: Nausea/Vomiting Pantoprazole Sodium (Protonix) 40 mg PO DAILY [facility] Last Admin: 08/01/18 09:51 Dose: 40 mg Senna/Docusate Sodium (Senokot S) 2 tab PO BID PRN PRN Reason: Constipation Sodium Chloride (Flush - Normal Saline) 10 ml IVF PRN PRN PRN Reason: Saline Flush Sodium Chloride ([place] Nasal [place] 0.65%) 0 ml EA NARE QIDPRN PRN PRN Reason: Nasal Congestion Tramadol HCl (Ultram) 50 mg PO Q4H PRN PRN Reason: Moderate to Severe Pain (6-10) Last Admin: 08/01/18 09:48 Dose: 50 mg
[2018-08-01] MEDS: Lidocaine Patch Removal 1 EACH TOP SCH (19:19)
[2018-08-01] MEDS: Levothyroxine Sodium 50 MCG TAB PO SCH (20:13)
[2018-08-01] MEDS: Atorvastatin Calcium 40 MG TAB PO SCH (20:13)
[2018-08-02] MEDS: Cyclobenzaprine 10 MG TAB PO PRN ×2 (01:46→09:36)
[2018-08-02] MEDS: traMADol HCl 50 MG TAB PO PRN (03:44)
[2018-08-02] MEDS: Lidocaine 5% Patch TD SCH (05:38)
[2018-08-02] MEDS: Enoxaparin Sodium 40 MG/0.4 ML SYRINGE SC SCH (09:35)
[2018-08-02] MEDS: Amlodipine 5 MG TAB PO SCH (09:36)
[2018-08-02] MEDS: azaTHIOprine 50 MG TAB PO SCH (09:36)
[2018-08-02] MEDS: Aspirin 325 mg Enteric Coated Tablet PO SCH (09:37)
[2018-08-02] MEDS: Mesalamine DR 400 mg Capsule PO SCH (09:37)
[2018-08-02] MEDS: Sodium Chloride 0.9% 1,000 ML IV SCH (14:30)
[2018-08-02 15:57] VITALS: BP 139/65; TEMP 99.1
[2018-08-02] MEDS: Lidocaine Patch Removal 1 EACH TOP SCH (18:29)
== END 2018-08-02 20:30 | DRG 65 ==
LOC: ERS 06:55 → ERHOLD 10:55 → OBSVTOIN 10:55 → 2SE 17:50
PROVIDERS: ADMIT Internal Medicine; ATTEND Internal Medicine
DX: I63.9 Cerebral infarction, unspecified (principal); K51.90 Ulcerative colitis, unspecified, without complications; G81.94 Hemiplegia, unspecified affecting left nondominant side; I10 Essential (primary) hypertension; Z79.899 Other long term (current) drug therapy; E03.9 Hypothyroidism, unspecified
CPT/HCPCS: 36415; 36416; 51701; 70496; 70498; 70553; 80048; 80053; 80061; 81003; 81015; 85025; 85652; 86140; 90471; 90662; 90670; 93306; 96361; 96374; 96375; A4353; A9579; C9113; G0008; G0009; J1650; J2060; J2405; J7500

== ENCOUNTER 2018-11-14 14:13 | Outpatient (CLI) | payer OTHER | END 2018-11-14 14:14 | disposition home or self-care (01) | LOC: ULT 14:13 | PROVIDERS: ATTEND Family Medicine | DX: R00.2 Palpitations (principal); I08.1 Rheumatic disorders of both mitral and tricuspid valves | CPT/HCPCS: 93306 ==

== ENCOUNTER 2019-04-04 07:13 | Outpatient (CLI) | payer OTHER ==
--- NOTE | 2019-04-04 09:07 | ULT ---
RIGHT UPPER QUADRANT ULTRASOUND: DATE: 04/04/2019. HISTORY: Right-sided pain, right upper quadrant pain with palpation. TECHNIQUE: Multiplanar, restrepo scale, sonographic imaging of the right upper quadrant obtained. FINDINGS: The visualized portions of the pancreas are unremarkable. The distal body and tail of the pancreas a re obscured by bowel gas. The hepatic parenchyma is heterogeneous in echogenic suggesting hepatocellular disease, such as hepat ic steatosis. Common bile duct measures 4 mm, within normal limits. No gallbladder wall thickening or pericholecystic fluid. No gallstones are noted. The brake engineer r eports a negative Nails's sign. The brake engineer reports a negative Nails's sign. The right kidney measures 11.0 cm craniocaudal dimension and demonstrates no evidence for stone, hydr onephrosis, or mass lesion. IMPRESSION: No sonographic evidence of cholelithiasis, cholecystitis, or biliary dilatation. Probable hepatic st eatosis. POS: OFF
== END 2019-04-04 07:14 | disposition home or self-care (01) ==
LOC: SCSULT 07:13
PROVIDERS: ATTEND Family Medicine
DX: R10.11 Right upper quadrant pain (principal)
CPT/HCPCS: 76705

== ENCOUNTER 2019-04-05 21:02 | Inpatient (IN) | payer MEDICARE, OTHER ==
[2019-04-05 23:41] LABS: Troponin I Less than 0.010 ng/mL (< 0.028)
[2019-04-06] MEDS ORDERED: Acetaminophen 325 MG TAB PO PRN (00:14)
[2019-04-06] MEDS ORDERED: Ondansetron PF 4 MG/2 ML Vial IVP PRN (00:14)
[2019-04-06] MEDS ORDERED: Ondansetron ODT 4 MG TAB SL PRN (00:14)
[2019-04-06 00:26] VITALS: BMI 33.5
--- NOTE | 2019-04-06 01:32 | PDOC.HHP ---
Hospitalist HPI - History of Present Illness Chest pain History of Present Illness: 64 year old female with PMH HTN, CVA, UC, and hypothyroidism presents as transfer from outside facility for chest pain. Patient had a stroke in July treated at this facility, MRI revealed infarction of the R hemipons, was treated with ASA and statin, PT/OT and patient discharged to rehab center. Ever since the stroke, patient has some residual L arm and leg weakness, but has also begun to deteriorate, she reports gradual onset of being short winded, needing to uyse a cane, less energy, she can only walk about 25 feet before being limited by symptoms. Patient has never been diagnosed with atrial fibrillation or other arrhthmia and has never seen a fisher pot or had any cardiac workup. She reports that she has had palpitations and a high heart rate in the past and her PCP, Dr Erickson has put her on a beta williams for this, and she also takes a baby aspirin but no other anticoagulation. She developed chest pain today which she describes as pressure and similar to indigestion. PCP performed some workup for this, RUQ ultrasound yesterday with hepatic steatosis but no biliary findings of urgency. CT angio of chest did not observe dissection or other cause of pain on the of this month. Patient to be admitted to [facility] for further workup Hospitalist ROS - Review of Systems Constitutional: denies: fever, chills Eyes: denies: vision change, conjunctivae inflammation ENT: denies: throat pain, throat swelling Respiratory: reports: cough, shortness of breath, SOB with excertion Cardiovascular: reports: chest pain, palpitations Gastrointestinal: denies: nausea, vomiting, diarrhea Genitourinary: denies: dysuria, frequency Musculoskeletal: denies: neck pain, shoulder pain Skin: denies: rash, lesions Neurological: reports: weakness (chronic L sided weakness since stroke). denies : seizures - Medication Medications: atorvastatin Sat Apr 05, 2019 21:23 WADE Velazquez Nancy TABLET : Strength - 40 mg : ORAL Patient Dose: once a day. levothyroxine Sat Apr 05, 2019 21:23 WADE Velazquez Nancy TABLET : Strength - 50 mcg : ORAL Patient Dose: Unknown. Aspirin Childrens Sat Apr 05, 2019 21:25 WADE Longoria, Morena TABLET, CHEWABLE : Strength - 81 mg : ORAL Patient Dose: 1 tab(s) Oral once a day. Vitamin D3 Sat Apr 05, 2019 21:25 WADE Longoria Deborah TABLET : Strength - 1, 000 unit : ORAL Patient Dose: 1 tab(s) Oral once a day. enalapril maleate SunApr 05, 2019 21:26 WADE Longoria Deborah TABLET : Strength - 10 mg : ORAL Patient Dose: 1 mg Oral once a day. azaTHIOprine SunApr 05, 2019 21:26 WADE Longoria Deborah TABLET : Strength - 50 mg : ORAL Patient Dose: 3 tab(s) Oral once a day. mirtazapine Sat Apr 05, 2019 21:27 WADE Longoria Deborah TABLET : Strength - 15 mg : ORAL Patient Dose: 1 tab(s) Oral once a day. Imodium SunApr 05, 2019 21:27 WADE Longoria Deborah CAPSULE : Strength - 2 mg : ORAL Patient Dose: 1 cap(s) Oral every 8 hours PRN. Co Q-10 SunApr 05, 2019 21:28 WADE Longoria Deborah CAPSULE : Strength - 100 mg : ORAL Patient Dose: 2 cap(s) Oral once a day. Hospitalist History - Past Medical History Other Medical History: Past medical history includes endocrine disease, hypothyroidism, Past medical history includes gastrointestinal disease, inflammatory bowel disease: ulcerative colitis, Past medical history includes history of hypertension, which has been treated, Patient is compliant, stroke in July 2018 caused left sided weakness. - Past Surgical History Other Surgical History: Ganglion cyst removed R wrist Apr 1987, Ovarian cyst removed laprascopic Sep 1987. - Family History Family History: reports: no pertinent history - Social History Other Social History: Patient denies drug use, quit alcohol and tobacco over 20 years ago. - Exam General Appearance: NAD, awake alert Eye: PERRL, anicteric sclera ENT: normocephalic atraumatic, no oropharyngeal lesions, moist mucosa Neck: supple, symmetric, no JVD, no thyromegaly, no lymphadenopathy, no carotid bruit Heart: RRR, no murmur, no gallops, no rubs, normal peripheral pulses Respiratory: CTAB, no wheezes, no rales, no ronchi, normal chest expansion, no tachypnea, normal percussion Gastrointestinal: soft, non-tender, non-distended, normal bowel sounds, no palpable masses, no hepatomegaly, no splenomegaly, no bruit Extremities: no cyanosis Skin: normal turgor, no lesions, no rashes Neurological: cranial nerve grossly intact, normal sensation to touch, no weakness, no focal deficits, no new deficit Neurological - other findings: L sided weakness at baseline per patient Hospitalist Results - Labs Lab results: Troponin I Less than 0.010 ng/mL (< 0.028) 04/05/19 23:03 Additional comment: BP: 152/77, Pulse: 59, Resp: 15, Temp: 98.3 (Oral), Pain: 4, O2 sat: 96 on Room Air, Time: 04/05/2019 21:07 - EKG Interpretation EK lead EKG interpreted by Emergency Department Physician at time of study, 12 lead EKG shows, sinus bradycardia, Rate (beats per minute): 57, with no ectopics , Conduction normal, ST segments normal, T waves normal, [place] normal. Hospitalist H&P A/P - Problem (1) Chest pain Code(s): R07.9 - CHEST PAIN, UNSPECIFIED Status: Acute (2) History of CVA (cerebrovascular accident) Code(s): Z86.73 - PRSNL HX OF TIA (TIA), AND CEREB INFRC W/O RESID DEFICITS Status: Acute (3) HTN (hypertension) Code(s): I10 - ESSENTIAL (PRIMARY) HYPERTENSION Status: Chronic (4) Ulcerative colitis Code(s): K51.90 - ULCERATIVE COLITIS, UNSPECIFIED, WITHOUT COMPLICATIONS Status: Chronic - Plan Plan: # chest pain - we will admit to telemetry for chest pain, trend troponins, continue all home medications including ASA - we will consult cardiology for further workup and order a nuclear stress test and an echo - we will do a CXR in the morning - further workup based on results of above # UC - continue all home meds # history of stroke - noted, monitor on telemetry to ensure no subacute atrial fibrillation
[2019-04-06] MEDS ORDERED: Loperamide HCl 2 MG CAP PO PRN (02:16)
[2019-04-06 03:02] LABS: Troponin I 0.014 ng/mL (< 0.028)
[2019-04-06] MEDS ORDERED: ADENOSINE 60 MG/20 ML VIAL ONE (09:07)
--- NOTE | 2019-04-06 09:36 | RAD ---
Chest one view HISTORY: Dyspnea. COMPARISON: 04/05/2019. FINDINGS: Cardiac silhouette is magnified by projection. Pulmonary vasculature is unremarkable. Media stinum is midline. No confluent airspace consolidation or evidence of pneumothorax. IMPRESSION: No active cardiopulmonary abnormalities are demonstrated.
[2019-04-06 10:25] LABS: Troponin I 0.014 ng/mL (< 0.028)
[2019-04-06] MEDS: Aspirin 81 mg Enteric Coated Tablet PO SCH (16:01)
[2019-04-06] MEDS: Ubidecarenone 50 MG CAP PO SCH (16:01)
[2019-04-06] MEDS: azaTHIOprine 50 MG TAB PO SCH (16:01)
[2019-04-06] MEDS: Mirtazapine 15 MG TAB PO SCH (16:02)
[2019-04-06] MEDS: Mesalamine DR 400 mg Capsule PO SCH (16:02)
[2019-04-06 18:33] LABS: Troponin I 0.019 ng/mL (< 0.028)
--- NOTE | 2019-04-06 19:32 | CON ---
DATE OF CONSULTATION: 04/06/2019 REASON FOR CONSULTATION: Chest pain. HISTORY OF PRESENT ILLNESS: Ms. Sosa is a very pleasant 64-year-old white female, who comes to the hospital for chest pain. She was arguing with somebody at home and felt sudden onset of chest tightness. This lasted for about 15 to 20 minutes and then it got better on its own. She decided to come in to the hospital as she was getting less energy and felt there was something going on. PAST MEDICAL HISTORY: 1. Hypertension. 2. History of CVA earlier this year. 3. Ulcerative colitis. 4. Hypothyroidism. 5. GERD. 6. Ulcerative colitis. PAST SURGICAL HISTORY: 1. Ganglion cyst removed on the right wrist. 2. Ovarian cyst removed laparoscopically. FAMILY HISTORY: No early coronary artery disease. SOCIAL HISTORY: Quit alcohol and tobacco 20 years ago. No drugs. REVIEW OF SYSTEMS: A 12-point review of systems was done and was all negative unless stated in the history of present illness. MEDICATIONS: 1. Atorvastatin 40 mg a day. 2. Levothyroxine 50 mcg a day. 3. Aspirin 81 a day. 4. Vitamin D3. 5. Enalapril 10 mg a day. 6. Azathioprine 50 mg three tablets a day. 7. Mirtazapine. 8. Imodium. 9. CoQ10. ALLERGIES: SULFA DRUGS. PHYSICAL EXAMINATION: VITAL SIGNS: Temperature 97.9, pulse 78, respiratory rate 14, and saturating 99% on room air, and blood pressure 137/67. GENERAL: Awake, alert, and oriented x3. In no distress. HEENT: Normocephalic, atraumatic. NECK: Supple. LUNGS: Clear. CARDIOVASCULAR: S1 and S2. No S3 or S4. No murmurs. ABDOMEN: Soft. Positive bowel sounds. EXTREMITIES: No edema. SKIN: Warm and dry. LABORATORY DATA: Laboratory work was reviewed. Troponin is negative x4. BNP was 18. TSH was normal. Echocardiogram was reviewed, unremarkable, EF of 60% to 65%, grade 1/3 diastolic dysfunction. ASSESSMENT AND PLAN: 1. Chest pain, atypical. 2. History of cerebrovascular accident. 3. Hypertension. PLAN: Stress test is already pending, second part of the stress test is pending for complete results. Further recommendations per results of full stress test. Job ID: [id number]
[2019-04-06] MEDS: Atorvastatin Calcium 40 MG TAB PO SCH (21:50)
[2019-04-06] MEDS: Levothyroxine Sodium 50 MCG TAB PO SCH (21:50)
[2019-04-06] MEDS: Lisinopril 10 MG TAB PO SCH (21:50)
[2019-04-07 01:40] LABS: Troponin I Less than 0.010 ng/mL (< 0.028)
[2019-04-07] MEDS: Ubidecarenone 50 MG CAP PO SCH (07:59)
[2019-04-07] MEDS: azaTHIOprine 50 MG TAB PO SCH (07:59)
[2019-04-07] MEDS: Aspirin 81 mg Enteric Coated Tablet PO SCH (07:59)
[2019-04-07] MEDS: Mesalamine DR 400 mg Capsule PO SCH (07:59)
[2019-04-07] MEDS: Mirtazapine 15 MG TAB PO SCH (08:00)
--- NOTE | 2019-04-07 12:41 | NM ---
NM Cardiac Stress W EF WF HISTORY: Chest pain COMPARISON: None. FINDINGS: This examination was done as a 2 day study using 30.8 mCi 90 9M technetium sestamibi on the stress and 32.1 mCi on the resting images. This shows a small defect in the apex of the heart and anterior wall near the apex on the stress views which appears to improve on the resting images sugges ting a small focus of ischemic change. Wall motion: There is symmetric contractility to the ventricle. Left ventricular ejection fraction: The calculated left ventricular ejection fraction was 86%. Please correlate with echocardiogram. IMPRESSION: Suggestion of a small area of ischemic change in the apex and anterior wall near the apex of the heart.
--- NOTE | 2019-04-07 16:03 | PDOC.CPN ---
- Subjective Date: 04/07/19 Time: 16:01 Interval history: Doing well. No chest pain. Continues to have SOB with exertion. - Review of Systems General: denies: fever/chills, weight/appetite/sleep changes, night sweats, fatigue Respiratory: reports: shortness of breath. denies: cough, congestion, exercise intolerance Cardiovascular: denies: chest pain, palpitation, edema, paroxysmal nocturnal dyspnea, orthopnea Gastrointestinal: denies: nausea, vomiting, diarrhea, constipation, abd pain, GI bleeding Musculoskeletal: denies: pain, tenderness, stiffness, swelling, arthritis/ arthralgias Neurological: denies: numbness, syncope, seizure, weakness - Objective Allergies/Adverse Reactions: Allergies Allergy/AdvReac Type Severity Reaction Status Date / Time Sulfa (Sulfonamide Allergy Verified 04/06/19 01:01 Antibiotics) Visit Medications: Current Medications Aspirin (Ecotrin) 81 mg PO DAILY [facility] Last Admin: 04/07/19 07:59 Dose: 81 mg Atorvastatin Calcium (Lipitor) 40 mg PO [facility] Last Admin: 04/06/19 21:50 Dose: 40 mg Azathioprine (Imuran) 150 mg PO DAILY [facility] Last Admin: 04/07/19 07:59 Dose: 150 mg Cholecalciferol (Vitamin D3) 1,000 units PO DAILY [facility] Last Admin: 04/07/19 07:59 Dose: 1,000 units Coenzyme Q10 (Coenzyme Q10) 200 mg PO DAILY [facility] Last Admin: 04/07/19 07:59 Dose: 200 mg Levothyroxine Sodium (Synthroid) 50 mcg PO 2200 [facility] Last Admin: 04/06/19 21:50 Dose: 50 mcg Lisinopril (Zestril) 10 mg PO HS [facility] Last Admin: 04/06/19 21:50 Dose: 10 mg Loperamide HCl (Imodium) 2 mg PO PRN PRN PRN Reason: Diarrhea/Loose Stools Mesalamine (Delzicol Dr) 1,200 mg PO QA-[facility] Last Admin: 04/07/19 07:59 Dose: 1,200 mg Metoprolol Succinate (Toprol Xl) 50 mg PO DAILY [facility] Last Admin: 04/07/19 08:00 Dose: 50 mg Mirtazapine (Remeron) 15 mg PO DAILY [facility] Last Admin: 04/07/19 08:00 Dose: 15 mg Vital Signs & Weight: Vital Signs Temp Pulse Resp BP Pulse Ox 04/07/19 12:20 98 F 70 18 147/71 H 100 04/07/19 07:55 97.7 F 73 18 127/71 99 Weight 177 lb 11.2 oz - Physical Exam General: alert & oriented x3 HEENT: mucus membranes moist Neck: supple neck Cardiac: regular rate and rhythm Lungs: clear to auscultation Neuro: grossly intact Abdomen: active bowel sounds Skin: clear Musculoskeletal: normal range of motion - Labs Troponin/CKMB Troponin I Less than 0.010 ng/mL (< 0.028) 04/07/19 01:07 - Telemetry Sinus rhythms and dysrhythmias: sinus rhythm - Assessment/Plan Assessment/Plan: 1. Chest pain 2. Abnormal stress test with apical ischemia. 3. Hx of CVA 4. Ulcerative colitis. PLAN; - We recommend she undergo LHC for further risk stratification. - We spoke about risks and benefits of procedure and she agrees to proceed. - BMS if needed given history of UC and higher risk of bleeding .
[2019-04-07] MEDS ORDERED: Communication Order-Pharmacy FS SCH (16:15)
[2019-04-07] MEDS: Lisinopril 10 MG TAB PO SCH (20:59)
[2019-04-07] MEDS: Atorvastatin Calcium 40 MG TAB PO SCH (21:00)
[2019-04-07] MEDS: Levothyroxine Sodium 50 MCG TAB PO SCH (21:02)
[2019-04-07] MEDS ORDERED: Cepastat Lozenges 1 LOZ PO PRN (21:12)
--- NOTE | 2019-04-07 22:28 | PDOC.HOSPP ---
- Subjective Encounter Date: 04/07/19 Encounter Time: 16:00 Subjective: Patient seen and examined for CP. No CP today. No new complaints. No overnight events - Objective Vital Signs & Weight: Vital Signs (12 hours) Temp Pulse Resp BP BP Pulse Ox 04/07/19 20:00 97.6 F 74 14 139/65 98 04/07/19 19:15 98 04/07/19 16:02 97.8 F 62 16 141/70 H 96 04/07/19 12:20 98 F 70 18 147/71 H 100 Weight Weight 177 lb 11.2 oz I&O: 04/06/19 04/07/19 04/08/19 06:59 06:59 06:59 Intake Total 870 Output Total 200 1500 Balance -200 -630 EKG Reviewed by me: Yes (Tele SR) Hospitalist ROS - Review of Systems Respiratory: denies: cough, dry, shortness of breath, hemoptysis, SOB with excertion, pleuritic pain, sputum, wheezing, other Cardiovascular: denies: chest pain, palpitations, orthopnea, paroxysmal noc. dyspnea, edema, light headedness, other Gastrointestinal: denies: nausea, vomiting, abdominal pain, diarrhea, constipation, melena, hematochezia, other - Medication Medications: Active Medications Generic Name Dose Route Start Last Admin Trade Name Freq PRN Reason Stop Dose Admin Aspirin 81 mg 04/06/19 09:00 04/07/19 07:59 Ecotrin PO 81 mg DAILY [facility] Administration Atorvastatin Calcium 40 mg 04/06/19 21:00 04/07/19 21:00 Lipitor PO 40 mg HS GUSTAVO Administration Azathioprine 150 mg 04/06/19 09:00 04/07/19 07:59 Imuran PO 150 mg DAILY [facility] Administration Cholecalciferol 1,000 units 04/06/19 09:00 04/07/19 07:59 Vitamin D3 PO 1,000 units DAILY [facility] Administration Coenzyme Q10 200 mg 04/06/19 09:00 04/07/19 07:59 Coenzyme Q10 PO 200 mg DAILY [facility]O Administration Levothyroxine Sodium 50 mcg 04/06/19 22:00 04/07/19 21:02 Synthroid PO 50 mcg 2200 G[facility]O Administration Lisinopril 10 mg 04/06/19 21:00 04/07/19 20:59 Zestril PO 10 mg HS G[facility]O Administration Mesalamine 1,200 mg 04/06/19 08:00 04/07/19 07:[address] PO 1,200 mg QAM-WM G[facility]AVO Administration Metoprolol Succinate 50 mg 04/06/19 09:00 04/07/19 08:00 Toprol Xl PO 50 mg DAILY [facility] Administration Mirtazapine 15 mg 04/06/19 09:00 04/07/19 08:00 Remeron PO 15 mg DAILY [facility] Administration Throat Lozenges 1 dodie 04/07/19 21:12 04/07/19 21:34 Cepastat Lozenges PO 1 dodie Q2H PRN Administration Sore Throat - Exam General Appearance: NAD, awake alert Neck: supple, no JVD Heart: RRR, no gallops, no rubs Heart - other findings: no heaves Respiratory: CTAB, no wheezes, no rales, no ronchi Gastrointestinal: soft, non-tender, non-distended, normal bowel sounds Extremities: no edema Neurological: no new deficit Psychiatric: normal affect, A&O x 3 Hosp A/P (1) Chest pain Code(s): R07.9 - CHEST PAIN, UNSPECIFIED Status: Acute (2) HTN (hypertension) Code(s): I10 - ESSENTIAL (PRIMARY) HYPERTENSION Status: Chronic (3) Ulcerative colitis Code(s): K51.90 - ULCERATIVE COLITIS, UNSPECIFIED, WITHOUT COMPLICATIONS Status: Chronic (4) Obesity (BMI 30.0-34.9) Code(s): E66.9 - OBESITY, UNSPECIFIED Status: Chronic (5) HLD (hyperlipidemia) Code(s): E78.5 - HYPERLIPIDEMIA, UNSPECIFIED Status: Acute (6) Hypothyroidism Code(s): E03.9 - HYPOTHYROIDISM, UNSPECIFIED Status: Acute (7) Abnormal stress test Status: Acute - Plan Cont ASA/Statins/Toprol Cont Azathioprine Cont Levothyroxine Cath in AM
[2019-04-08] MEDS ORDERED: Sodium Chloride 0.9% 1,000 ML IV SCH (00:01)
[2019-04-08] MEDS: Aspirin 81 mg Enteric Coated Tablet PO SCH (05:30)
[2019-04-08] MEDS ORDERED: Lidocaine 1% (PF) 30 ML VIAL ONE (06:48)
[2019-04-08] MEDS ORDERED: Midazolam HCl 2 mg/2 ml Vial ONE (07:30)
[2019-04-08] MEDS ORDERED: Fentanyl 100 MCG/2 ML VIAL ONE (07:30)
[2019-04-08] MEDS ORDERED: Nitroglycerin 100MG/250ML BOT 250 ML ONE (08:12)
[2019-04-08] MEDS ORDERED: Heparin 10,000 UNITS/1 ML VIAL ONE (08:12)
[2019-04-08] MEDS ORDERED: TICAGRELOR 90 MG TABLET ONE (08:15)
[2019-04-08] MEDS ORDERED: Sodium Chloride 0.9% 500 ML IV SCH (08:30)
[2019-04-08] MEDS ORDERED: Iopamidol 370 76% 100 ML VIAL ONE (11:22)
[2019-04-08] MEDS: Mesalamine DR 400 mg Capsule PO SCH (11:45)
[2019-04-08] MEDS: azaTHIOprine 50 MG TAB PO SCH (11:46)
[2019-04-08] MEDS: Ubidecarenone 50 MG CAP PO SCH (11:46)
[2019-04-08] MEDS: Mirtazapine 15 MG TAB PO SCH (11:46)
[2019-04-08] MEDS: TICAGRELOR 90 MG TABLET PO SCH ×2 (12:24→21:05)
[2019-04-08] MEDS: Levothyroxine Sodium 50 MCG TAB PO SCH (21:05)
[2019-04-08] MEDS: Atorvastatin Calcium 40 MG TAB PO SCH (21:05)
[2019-04-08] MEDS: Lisinopril 10 MG TAB PO SCH (21:05)
--- NOTE | 2019-04-08 22:57 | PDOC.HOSPP ---
- Subjective Encounter Date: 04/08/19 Encounter Time: 18:30 Subjective: Patient seen and examined for CP/Abn Stress test. No CP. No new complaints. No overnight events - Objective Vital Signs & Weight: Vital Signs (12 hours) Temp Pulse Resp BP Pulse Ox 04/08/19 19:20 97.6 F 76 16 118/66 99 04/08/19 16:15 98.3 F 61 16 145/65 H 98 04/08/19 11:39 98 F 68 18 145/70 H 98 Weight Weight 180 lb 11.2 oz I&O: 04/07/19 04/08/19 04/09/19 06:59 06:59 06:59 Intake Total 970 1520 Output Total 200 2050 400 Balance -200 -1080 1120 Result Diagrams: 04/09/19 04:25 04/09/19 04:25 Hospitalist ROS - Review of Systems Cardiovascular: denies: chest pain, palpitations, orthopnea, paroxysmal noc. dyspnea, edema, light headedness, other Gastrointestinal: denies: nausea, vomiting, abdominal pain, diarrhea, constipation, melena, hematochezia, other - Medication Medications: Active Medications Generic Name Dose Route Start Last Admin Trade Name Freq PRN Reason Stop Dose Admin Aspirin 81 mg 04/06/19 09:00 04/08/19 05:30 Ecotrin PO 81 mg DAILY [facility] Administration Atorvastatin Calcium 40 mg 04/06/19 21:00 04/08/19 21:05 Lipitor PO 40 mg HS G[facility]O Administration Azathioprine 150 mg 04/06/19 09:00 04/08/19 11:46 Imuran PO 150 mg DAILY [facility] Administration Cholecalciferol 1,000 units 04/06/19 09:00 04/08/19 11:46 Vitamin D3 PO 1,000 units DAILY [facility] Administration Coenzyme Q10 200 mg 04/06/19 09:00 04/08/19 11:46 Coenzyme Q10 PO 200 mg DAILY [facility] Administration Levothyroxine Sodium 50 mcg 04/06/19 22:00 04/08/19 21:05 Synthroid PO 50 mcg 2200 [facility] Administration Lisinopril 10 mg 04/06/19 21:00 04/08/19 21:05 Zestril PO 10 mg HS [facility] Administration Mesalamine 1,200 mg 04/06/19 08:00 04/08/19 11:[address] PO 1,200 mg QAM-WM G[facility] Administration Metoprolol Succinate 50 mg 04/06/19 09:00 04/08/19 05:30 Toprol Xl PO 50 mg DAILY [facility] Administration Mirtazapine 15 mg 04/06/19 09:00 04/08/19 11:46 Remeron PO 15 mg DAILY [facility] Administration Throat Lozenges 1 dodie 04/07/19 21:12 04/07/19 21:34 Cepastat Lozenges PO 1 dodie Q2H PRN Administration Sore Throat Ticagrelor 90 mg 04/08/19 09:00 04/08/19 21:05 Brilinta PO 90 mg BID [facility] Administration - Exam General Appearance: NAD Heart: RRR, no gallops Respiratory: CTAB, no rales Gastrointestinal: soft, non-tender, normal bowel sounds Extremities: no edema Hosp A/P (1) Chest pain Code(s): R07.9 - CHEST PAIN, UNSPECIFIED Status: Acute (2) HTN (hypertension) Code(s): I10 - ESSENTIAL (PRIMARY) HYPERTENSION Status: Chronic (3) Ulcerative colitis Code(s): K51.90 - ULCERATIVE COLITIS, UNSPECIFIED, WITHOUT COMPLICATIONS Status: Chronic (4) Obesity (BMI 30.0-34.9) Code(s): E66.9 - OBESITY, UNSPECIFIED Status: Chronic (5) HLD (hyperlipidemia) Code(s): E78.5 - HYPERLIPIDEMIA, UNSPECIFIED Status: Acute (6) Hypothyroidism Code(s): E03.9 - HYPOTHYROIDISM, UNSPECIFIED Status: Chronic (7) Abnormal stress test Status: Chronic - Plan Cont ASA/Brilinta Cont Statins/Toprol Cont Azathioprine/Levothyroxine DC home once cleared by Cardiology
[2019-04-09 05:01] LABS: #Eosinphils 0.1 thou/uL (0.0-0.7); #Lymphocytes 0.9 thou/uL (1.20-3.40); #Monocytes 0.3 thou/uL (0.11-0.59); #Neutrophils 3.4 thou/uL (1.40-6.50); %Basophils 0.8 % (0.0-1.0); %Eosinophils 2.8 % (0.0-10.0); %Lymphocytes 19.1 % (21.0-51.0); %Monocytes 6.4 % (0.0-10.0); %Neutrophils 70.9 % (42.0-75.0); Hemoglobin 12.7 g/dL (12.0-16.0); Mean Corpuscular HGB CONC 34.8 g/dL (32.0-36.0); Mean Corpuscular Hemoglobin 35.3 pg (27.0-31.0); Mean Platelet Volume 6.5 fL (7.4-10.4); Platelet Count 310 thou/uL (130-400); RBC Distribution Width 13.3 % (11.5-14.5); Red Blood Cell (RBC) Count 3.58 mill/uL (4.20-5.40); White Blood Cell (WBC) Count 4.8 thou/uL (4.8-10.8)
[2019-04-09 05:22] LABS: ALT (SGPT) 11 U/L (8-55); AST (SGOT) 13 U/L (5-34); Albumin 3.7 g/dL (3.4-4.8); Alkaline Phosphatase 81 U/L (40-110); Anion Gap 13 mmol/L (10-20); BUN (Urea Nitrogen) 19 mg/dL (9.8-20.1); Bilirubin, Total 0.8 mg/dL (0.2-1.2); Calc. Creatinine Clearance 91 mL/min (70-130); Calcium 8.7 mg/dL (7.8-10.44); Carbon Dioxide 23 mmol/L (23-31); Chloride 108 mmol/L (98-107); Estimated GFR-MDRD 73; Globulin 2.2 g/dL (2.4-3.5); Glucose 96 mg/dL (80-115); Magnesium 2.1 mg/dL (1.6-2.6); Potassium 3.9 mmol/L (3.5-5.1); Protein, Total 5.9 g/dL (6.0-8.3); Sodium 140 mmol/L (136-145)
[2019-04-09] MEDS: Ubidecarenone 50 MG CAP PO SCH (09:02)
[2019-04-09] MEDS: TICAGRELOR 90 MG TABLET PO SCH ×2 (09:03→20:39)
[2019-04-09] MEDS: Aspirin 81 mg Enteric Coated Tablet PO SCH (09:03)
[2019-04-09] MEDS: Mirtazapine 15 MG TAB PO SCH (09:03)
[2019-04-09] MEDS: azaTHIOprine 50 MG TAB PO SCH (09:03)
[2019-04-09] MEDS: Mesalamine DR 400 mg Capsule PO SCH (09:21)
--- NOTE | 2019-04-09 19:09 | PDOC.CPN ---
- Subjective Date: 04/09/19 Time: 19:07 Interval history: No new issues. She had oozing on her cath site and that has since stopped bleeding. - Review of Systems General: denies: fever/chills, weight/appetite/sleep changes, night sweats, fatigue Respiratory: denies: cough, congestion, shortness of breath, exercise intolerance Cardiovascular: denies: chest pain, palpitation, edema, paroxysmal nocturnal dyspnea, orthopnea Gastrointestinal: denies: nausea, vomiting, diarrhea, constipation, abd pain, GI bleeding Musculoskeletal: denies: pain, tenderness, stiffness, swelling, arthritis/ arthralgias Neurological: denies: numbness, syncope, seizure, weakness - Objective Allergies/Adverse Reactions: Allergies Allergy/AdvReac Type Severity Reaction Status Date / Time Sulfa (Sulfonamide Allergy Verified 04/06/19 01:01 Antibiotics) Visit Medications: Current Medications Aspirin (Ecotrin) 81 mg PO DAILY [facility] Last Admin: 04/09/19 09:03 Dose: 81 mg Atorvastatin Calcium (Lipitor) 40 mg PO [facility] Last Admin: 04/08/19 21:05 Dose: 40 mg Azathioprine (Imuran) 150 mg PO DAILY [facility] Last Admin: 04/09/19 09:03 Dose: 150 mg Cholecalciferol (Vitamin D3) 1,000 units PO DAILY [facility] Last Admin: 04/09/19 09:03 Dose: 1,000 units Coenzyme Q10 (Coenzyme Q10) 200 mg PO DAILY [facility] Last Admin: 04/09/19 09:02 Dose: 200 mg Levothyroxine Sodium (Synthroid) 50 mcg PO 2200 [facility] Last Admin: 04/08/19 21:05 Dose: 50 mcg Lisinopril (Zestril) 10 mg PO HS [facility] Last Admin: 04/08/19 21:05 Dose: 10 mg Loperamide HCl (Imodium) 2 mg PO PRN PRN PRN Reason: Diarrhea/Loose Stools Mesalamine (Delzicol Dr) 1,200 mg PO QA-[facility] Last Admin: 04/09/19 09:21 Dose: 1,200 mg Metoprolol Succinate (Toprol Xl) 50 mg PO DAILY [facility] Last Admin: 04/09/19 09:03 Dose: 50 mg Mirtazapine (Remeron) 15 mg PO DAILY [facility] Last Admin: 04/09/19 09:03 Dose: 15 mg Throat Lozenges (Cepastat Lozenges) 1 dodie PO Q2H PRN PRN Reason: Sore Throat Last Admin: 04/07/19 21:34 Dose: 1 dodie Ticagrelor (Brilinta) 90 mg PO BID [facility] Last Admin: 04/09/19 09:03 Dose: 90 mg Vital Signs & Weight: Vital Signs Temp Pulse Pulse Pulse Resp BP BP 04/09/19 16:00 98.2 F 85 18 04/09/19 12:00 98.1 F 92 18 04/09/19 10:14 99 104 H 124/81 136/74 04/09/19 07:49 97.6 F 79 18 BP Pulse Ox Pulse Ox 04/09/19 16:00 130/75 98 04/09/19 12:00 130/69 95 04/09/19 10:14 98 04/09/19 07:49 125/72 99 Weight 182 lb 9.6 oz - Physical Exam General: alert & oriented x3, no apparent distress HEENT: mucus membranes moist, normocephaly Neck: supple neck, midline trachea Cardiac: regular rate and rhythm, no murmur Lungs: clear to auscultation Neuro: grossly intact Abdomen: active bowel sounds, soft, non-tender Skin: clear Musculoskeletal: normal range of motion - Labs Result Diagrams: 04/09/19 04:25 04/09/19 04:25 Troponin/CKMB Troponin I Less than 0.010 ng/mL (< 0.028) 04/07/19 01:07 - Telemetry Sinus rhythms and dysrhythmias: sinus rhythm - Assessment/Plan Assessment/Plan: 1. Unstable angina 2. S/P PCI to large IR with BMS. 3. Hx of CVA 4. Ulcerative colitis. 5. CAD PLAN; - Brilinta and aspirin for one month only then aspirin alone. - Continue Statin, BB and ACEI.
--- NOTE | 2019-04-09 19:54 | EKG ---
Test Reason : POST STENT Blood Pressure : / mmHG Vent. Rate : 057 BPM Atrial Rate : 057 BPM P-R Int : 172 ms QRS Dur : 076 ms QT Int : 396 ms P-R-T Axes : 055 -04 004 degrees QTc Int : 385 ms Sinus bradycardia Otherwise normal ECG When compared with ECG of 05-APR-2019 21:37, (Unconfirmed) No significant change was found Confirmed by SOURAV SHAH, DR. S. ([id number]) on 04/09/2019 7:54:11 PM Referred By: MARYAN Confirmed By:DR. Keanu BENJAMIN MD
--- NOTE | 2019-04-09 20:04 | EKG ---
Test Reason : Blood Pressure : / mmHG Vent. Rate : 077 BPM Atrial Rate : 077 BPM P-R Int : 144 ms QRS Dur : 080 ms QT Int : 354 ms P-R-T Axes : -11 -14 -12 degrees QTc Int : 400 ms Normal sinus rhythm Nonspecific ST abnormality Abnormal ECG When compared with ECG of 08-APR-2019 08:52, (Unconfirmed) No significant change was found Confirmed by SOURAV SHAH, . SEdvin ([id number]) on 04/09/2019 8:03:46 PM Referred By: MARYAN Confirmed By:DR. Keanu BENJAMIN MD
[2019-04-09] MEDS: Atorvastatin Calcium 40 MG TAB PO SCH (20:39)
[2019-04-09] MEDS: Levothyroxine Sodium 50 MCG TAB PO SCH (20:39)
[2019-04-09] MEDS: Lisinopril 10 MG TAB PO SCH (20:39)
--- NOTE | 2019-04-09 22:43 | PDOC.HOSPP ---
- Subjective Encounter Date: 04/09/19 Encounter Time: 15:00 Subjective: Patient seen and examined for CP. No CP. Feel gen weak. No new complaints. No overnight events - Objective Vital Signs & Weight: Vital Signs (12 hours) Temp Pulse Resp BP Pulse Ox 04/09/19 20:39 98.5 F 84 18 112/63 95 04/09/19 16:00 98.2 F 85 18 130/75 98 04/09/19 12:00 98.1 F 92 18 130/69 95 Weight Weight 182 lb 9.6 oz I&O: 04/08/19 04/09/19 04/10/19 06:59 06:59 06:59 Intake Total 970 1940 960 Output Total 2050 750 Balance -1080 1190 960 Result Diagrams: 04/09/19 04:25 04/09/19 04:25 EKG Reviewed by me: Yes (Tele SR) Hospitalist ROS - Review of Systems Respiratory: denies: cough, dry, shortness of breath, hemoptysis, SOB with excertion, pleuritic pain, sputum, wheezing, other Cardiovascular: denies: chest pain, palpitations, orthopnea, paroxysmal noc. dyspnea, edema, light headedness, other - Medication Medications: Active Medications Generic Name Dose Route Start Last Admin Trade Name Freq PRN Reason Stop Dose Admin Aspirin 81 mg 04/06/19 09:00 04/09/19 09:03 Ecotrin PO 81 mg DAILY [facility] Administration Atorvastatin Calcium 40 mg 04/06/19 21:00 04/09/19 20:39 Lipitor PO 40 mg HS G[facility]O Administration Azathioprine 150 mg 04/06/19 09:00 04/09/19 09:03 Imuran PO 150 mg DAILY [facility] Administration Cholecalciferol 1,000 units 04/06/19 09:00 04/09/19 09:03 Vitamin D3 PO 1,000 units DAILY [facility] Administration Coenzyme Q10 200 mg 04/06/19 09:00 04/09/19 09:02 Coenzyme Q10 PO 200 mg DAILY [facility] Administration Levothyroxine Sodium 50 mcg 04/06/19 22:00 04/09/19 20:39 Synthroid PO 50 mcg 2200 G[facility] Administration Lisinopril 10 mg 04/06/19 21:00 04/09/19 20:39 Zestril PO 10 mg HS [facility] Administration Mesalamine 1,200 mg 04/06/19 08:00 04/09/19 09:[address] PO 1,200 mg QAM-WM G[facility]O Administration Metoprolol Succinate 50 mg 04/06/19 09:00 04/09/19 09:03 Toprol Xl PO 50 mg DAILY [facility] Administration Mirtazapine 15 mg 04/06/19 09:00 04/09/19 09:03 Remeron PO 15 mg DAILY [facility] Administration Throat Lozenges 1 dodie 04/07/19 21:12 04/07/19 21:34 Cepastat Lozenges PO 1 dodie Q2H PRN Administration Sore Throat Ticagrelor 90 mg 04/08/19 09:00 04/09/19 20:39 Brilinta PO 90 mg BID [facility]O Administration - Exam General Appearance: NAD Neck: supple, no JVD Heart: RRR, no gallops Respiratory: CTAB, no rales Gastrointestinal: soft, non-tender, normal bowel sounds Extremities: no edema Hosp A/P (1) Chest pain Code(s): R07.9 - CHEST PAIN, UNSPECIFIED Status: Acute (2) HTN (hypertension) Code(s): I10 - ESSENTIAL (PRIMARY) HYPERTENSION Status: Chronic (3) Ulcerative colitis Code(s): K51.90 - ULCERATIVE COLITIS, UNSPECIFIED, WITHOUT COMPLICATIONS Status: Chronic (4) Obesity (BMI 30.0-34.9) Code(s): E66.9 - OBESITY, UNSPECIFIED Status: Chronic (5) HLD (hyperlipidemia) Code(s): E78.5 - HYPERLIPIDEMIA, UNSPECIFIED Status: Acute (6) Hypothyroidism Code(s): E03.9 - HYPOTHYROIDISM, UNSPECIFIED Status: Chronic (7) Abnormal stress test Status: Chronic (8) CAD (coronary artery disease) Code(s): I25.10 - ATHSCL HEART DISEASE OF [place] CORONARY ARTERY W/O ANG PCTRS Status: Chronic - Plan Cont ASA/Brilinta/Statins/Toprol/ACEI Cont Azathioprine/Mesalamine Cont Levothyroxine DC home once cleared by Cardiology
[2019-04-10] MEDS: azaTHIOprine 50 MG TAB PO SCH (10:04)
[2019-04-10] MEDS: Ubidecarenone 50 MG CAP PO SCH (10:04)
[2019-04-10] MEDS: Mirtazapine 15 MG TAB PO SCH (10:05)
[2019-04-10] MEDS: TICAGRELOR 90 MG TABLET PO SCH (10:05)
[2019-04-10] MEDS: Aspirin 81 mg Enteric Coated Tablet PO SCH (10:05)
[2019-04-10] MEDS: Mesalamine DR 400 mg Capsule PO SCH (10:55)
[2019-04-10 14:22] VITALS: BP 116/63; TEMP 98.2
--- NOTE | 2019-04-10 19:01 | DIS ---
DATE OF ADMISSION: 04/05/2019 DATE OF DISCHARGE: 04/10/2019 DISCHARGE DISPOSITION: Nursing Home Facility. FOLLOWUP: 1. Follow up with Dr. Hauser in 1 week. 2. Follow up with Dr. Dugan in 2 to 3 weeks. ALLERGIES: THE PATIENT IS ALLERGIC TO SULFA. THE PATIENT WAS SEEN AND EXAMINED ON THE DAY OF DISCHARGE. DENIES ANY NEW COMPLAINTS. NO CHEST PAIN, SHORTNESS OF BREATH, OR PALPITATIONS REPORTED. DISCHARGE MEDICATIONS: 1. Aspirin 81 mg daily. 2. Lipitor 40 mg at bedtime. 3. Brilinta 90 mg b.i.d. 4. Coenzyme Q10 200 mg daily. 5. Toprol-XL 50 mg daily. 6. Mesalamine 1.2 g daily. 7. Imodium as needed. 8. Levothyroxine 50 mcg at bedtime. 9. Enalapril 10 mg at bedtime. 10. Vitamin D3 1000 units daily. 11. Azathioprine 150 mg daily. INPATIENT MEDICAL DIRECTOR/HEAD TEAM PHYSICIAN: Cardiology, Dr. Dugan. INPATIENT PROCEDURES: On 08 April 2019, the patient underwent cardiac catheterization with bare-metal stent placement in the ramus. Her mid RCA had 40% stenosis. Echocardiogram showed left ventricular ejection fraction of 60% to 65% with grade 1 of 3 diastolic dysfunction, mild mitral regurgitation, and mild tricuspid regurgitation. Cardiolite stress test on 06 April 2019 showed small area of ischemic change in the apex and the anterior wall near the apex of the heart. BRIEF HOSPITAL COURSE: The patient is a 64-year-old female with hypertension, ulcerative colitis, and CVA in the past, presented to the hospital with chest discomfort on 05 April 2019. Please refer to the history and physical for further details. The patient was admitted to the hospital with a diagnosis of chest discomfort, rule out acute coronary syndrome. Serial troponins remain negative. She underwent a stress test that was abnormal as discussed above. She underwent a bare-metal stent placement in the ramus. Due to significant generalized weakness and deconditioning, she will be discharged to long-term facility for rehabilitation. She will continue Brilinta along with aspirin for 1 month. She will follow up with Dr. Dugan for possible discontinuation of Brilinta after 1 month. SIGNIFICANT LABORATORY DATA: 1. WBC 4.8, hemoglobin 12.7, platelet 310. 2. Creatinine at discharge is 0.79. 3. LFTs were normal. 4. Troponin was normal. 5. TSH was 0.87. 6. BNP was normal. 7. Vitamin B12 was 893 in August of this year. FINAL DIAGNOSES: 1. Chest discomfort. 2. Abnormal stress test. 3. Coronary artery disease with bare-metal stent placement to [facility] this admission. 4. Hypertension. 5. History of cerebrovascular accident. 6. History of ulcerative colitis. 7. Obesity with a body mass index of 34.6. 8. Hyperlipidemia. 9. Physical deconditioning. 10. Chronic kidney disease, stage 2. Plan of care was discussed with the patient in detail. She stated understanding. Job ID: [id number]
--- NOTE | 2019-04-12 12:17 | EKG ---
Test Reason : Blood Pressure : / mmHG Vent. Rate : 057 BPM Atrial Rate : 057 BPM P-R Int : 168 ms QRS Dur : 086 ms QT Int : 404 ms P-R-T Axes : 054 -05 014 degrees QTc Int : 393 ms Sinus bradycardia Otherwise normal ECG Confirmed by SINAN HILL MD ([id number]), editor & co founder DREAD DUMONT ([id number]) on 04/12/2019 12:16:31 PM Referred By: Confirmed By:SINAN HILL MD
== END 2019-04-10 16:47 | DRG 249 ==
LOC: ERS 21:02 → 2NO 22:59
PROVIDERS: ADMIT Internal Medicine; ATTEND Internal Medicine
PROC: 02703DZ Dilation of Coronary Artery, One Artery with Intraluminal Device, Percutaneous Approach (ICD-10-PCS; principal; 2019-04-08)
PROC: 4A023N7 Measurement of Cardiac Sampling and Pressure, Left Heart, Percutaneous Approach (ICD-10-PCS; 2019-04-08)
PROC: B2111ZZ Fluoroscopy of Multiple Coronary Arteries using Low Osmolar Contrast (ICD-10-PCS; 2019-04-08)
DX: I25.110 Atherosclerotic heart disease of native coronary artery with unstable angina pectoris (principal); K51.80 Other ulcerative colitis without complications; I69.354 Hemiplegia and hemiparesis following cerebral infarction affecting left non-dominant side; E78.5 Hyperlipidemia, unspecified; E03.9 Hypothyroidism, unspecified; I12.9 Hypertensive chronic kidney disease with stage 1 through stage 4 chronic kidney disease, or unspecified chronic kidney disease; K21.9 Gastro-esophageal reflux disease without esophagitis; N18.2 Chronic kidney disease, stage 2 (mild); E66.9 Obesity, unspecified; Z68.34 Body mass index [BMI] 34.0-34.9, adult; I48.91 Unspecified atrial fibrillation
CPT/HCPCS: 36415; 71045; 78452; 80053; 83735; 83880; 84443; 84484; 85025; 85347; 92928; 93005; 93010; 93017; 93306; 93458; 93798; 99152; 99153; A9500; C1760; C1769; C1876; J0153; J1644; J2001; J2250; J3010; J7500; Q9967

== ENCOUNTER 2019-06-09 12:35 | Outpatient (CLI) | payer OTHER ==
--- NOTE | 2019-06-17 11:15 | MMO ---
Bilateral MAMMO Bilat Screen [facility]. CLINICAL HISTORY: Patient is 64 years old and is seen for screening. The patient has the following family history of breast cancer: niece, at age 34. The patient has no personal history of cancer. VIEWS: The views performed were: bilateral craniocaudal with tomosynthesis; bilateral mediolateral oblique with tomosynthesis; left mediolateral oblique; and left exaggerated craniocaudal. FILMS COMPARED: The present examination has been compared to a prior imaging study performed at [facility] on 06/21/2017. This study has been interpreted with the assistance of computer-aided detection. MAMMOGRAM FINDINGS: The breasts are heterogeneously dense, which could obscure a lesion on mammography. There are stable benign appearing calcifications seen in both breasts. There are no suspicious masses, suspicious calcifications, or new areas of architectural distortion. IMPRESSION: THERE IS NO MAMMOGRAPHIC EVIDENCE OF MALIGNANCY. A ROUTINE FOLLOW-UP MAMMOGRAM IN 1 YEAR IS RECOMMENDED. THE RESULTS OF THIS EXAM WERE SENT TO THE PATIENT. ACR BI-RADS Category 2 - Benign finding MAMMOGRAPHY NOTE: 1. A negative mammogram report should not delay a biopsy if a dominant of clinically suspicious mass is present. 2. Approximately 10% to 15% of breast cancers are not detected by mammography. 3. Adenosis and dense breasts may obscure an underlying neoplasm. Reported by: TANYA DELEON MD Electonically Signed: [id number]
== END 2019-06-09 12:36 | disposition home or self-care (01) ==
LOC: BICMAMMO 12:35
PROVIDERS: ATTEND Nurse Practitioner Family
DX: Z12.31 Encounter for screening mammogram for malignant neoplasm of breast (principal); Z80.3 Family history of malignant neoplasm of breast
CPT/HCPCS: 77063; 77067

== ENCOUNTER 2019-11-03 12:07 | Observation (INO) | payer OTHER ==
--- NOTE | 2019-11-03 16:48 | PDOC.HHP ---
Hospitalist HPI - History of Present Illness "I was feeling bad and had a tightening in my chest" History of Present Illness: PCP: Dr Hauser 64 female with pertinent history of RCA stent placement in April 2019 and CVA July 2018 presents with a complaint of "feeling bad" for a couple of days. She states that she has had on and off weakness this past week and then this morning had an episode of tightness in her chest, midsternal with heaviness that left her feeling short of breath. She also felt dizzy at the time. The sensation went away once to the ER without intervention. She states that she has been under more stress than usual this past week due to caring for a sick pet and has not slept as well as she normally does. The patient reports that since her stroke her stamina has not improved to where she once was and also that if she talks for a long period of time she begins to feel short of breath. ED Course: Patient was seen in [place] ER this morning where they completed an EKG which showed NSR. She was given ASA 162 mg PO and then transferred to [facility] in [place] to continue treatment because they were unable to complete labwork there. In [place] a troponin was completed and was normal. A second EKG was obtained that showed NSR P 72 with no signs of ischemia. No other medications given prior to admission. Hospitalist ROS - Review of Systems All other systems reviewed; all pertinent +/- noted in HPI/Subj - Medication Medications: Allergies: Sulfa (hives) Home Medications: levothyroxine oral SunNov 03, 2019 12:25 WADE Torres Tammy TABLET : Strength - 50 mcg : ORAL Patient Dose: Unknown. Aspirin Childrens SunNov 03, 2019 12:25 WADE Torres Tammy TABLET, CHEWABLE : Strength - 81 mg : ORAL Patient Dose: 1 tab(s) Oral once a day. enalapril maleate SunNov 03, 2019 12:25 WADE Torres Tammy TABLET : Strength - 10 mg : ORAL Patient Dose: 1 mg Oral once a day. azaTHIOprine SunNov 03, 2019 12:25 WADE Torres Tammy TABLET : Strength - 50 mg : ORAL Patient Dose: 3 tab(s) Oral once a day. metoprolol succinate SunNov 03, 2019 13:45 WADE Casper, Annemarie tablet extended release 24 hr : Strength - 100 mg : ORAL Patient Dose: 1 tab(s) Oral once a day (in the morning). clopidogrel SunNov 03, 2019 13:45 WADE Casper, Annemarie tablet : Strength - 75 mg : ORAL Patient Dose: 1 tab(s) Oral once a day. Hospitalist History - Past Medical History Source: patient Cardiac: reports: CAD (RCA stent), HTN Pulmonary: reports: no pertinent history [employer]: reports: CVA (CVA July 2018) Gastrointestinal: reports: Other (ulcerative colitis) Psych: reports: Anxiety, Depression Endocrine: reports: Hypothyroidism - Past Surgical History Past Surgical History: reports: Other Other Surgical History: ganglian cyst removed, ovarian cyst removed - Family History Family History: reports: hypertension - Social History Smoking Status: Former smoker (quit 25-30 years ago) Alcohol: reports: None Drugs: reports: none Living Situation: Alone - Exam General Appearance: NAD (Vital Signs: BP: 121/86, Pulse: 71, Resp: 18, Temp: 98.7, Pain: 0, O2 sat: 99, Time: 11/03/2019 15:04.), awake alert ENT: normocephalic atraumatic, moist mucosa Neck: supple, symmetric, no JVD, no lymphadenopathy Heart: RRR, no murmur, no gallops, no rubs Respiratory: CTAB, no wheezes, no rales, no ronchi Gastrointestinal: soft, non-tender, non-distended, normal bowel sounds Extremities: 1+ LE edema Skin: normal turgor, no lesions Psychiatric: normal affect, normal behavior Hospitalist Results - Labs Result Diagrams: 11/04/19 04:44 11/04/19 04:44 Lab results: Troponin I Less than 0.010 ng/mL (< 0.028) 11/03/19 15:57 Laboratory Tests 11/03/19 13:03 D-Dimer 0.35 - EKG Interpretation EKG: NSR P 72 Hospitalist H&P A/P - Problem (1) Chest pain Code(s): R07.9 - CHEST PAIN, UNSPECIFIED Status: Acute (2) CAD (coronary artery disease) Code(s): I25.10 - ATHSCL HEART DISEASE OF [place] CORONARY ARTERY W/O ANG PCTRS Status: Chronic (3) HTN (hypertension) Code(s): I10 - ESSENTIAL (PRIMARY) HYPERTENSION Status: Chronic Qualifiers: Hypertension type: essential hypertension Qualified Code(s): I10 - Essential (primary) hypertension (4) History of CVA (cerebrovascular accident) Code(s): Z86.73 - PRSNL HX OF TIA (TIA), AND CEREB INFRC W/O RESID DEFICITS Status: Chronic (5) Hypothyroidism Code(s): E03.9 - HYPOTHYROIDISM, UNSPECIFIED Status: Chronic (6) Ulcerative colitis Code(s): K51.90 - ULCERATIVE COLITIS, UNSPECIFIED, WITHOUT COMPLICATIONS Status: Chronic (7) Obesity (BMI 30-39.9) Code(s): E66.9 - OBESITY, UNSPECIFIED Status: Chronic - Plan Plan: * Chest pain: Troponin x 2 negative, will continue to monitor for another set. Cardiology consult- abnormal stress test and RCA stent placed 6 months ago[address] Currently sees Dr. Dugan for cardiology. * HTN: Monitor VS during hospital stay. * Continue home medications when reconciled. * DVT prophylaxis. * Tele monitoring.
[2019-11-03] MEDS ORDERED: Acetaminophen 325 MG TAB PO PRN (18:04)
[2019-11-03] MEDS ORDERED: Ondansetron ODT 4 MG TAB PO PRN (18:05)
[2019-11-03] MEDS ORDERED: hydrALAZINE 20 MG/ML VIAL SLOW IVP PRN (18:05)
[2019-11-03 18:23] VITALS: BMI 36.8
[2019-11-03 20:03] LABS: Troponin I Less than 0.010 ng/mL (< 0.028)
[2019-11-03] MEDS: Levothyroxine Sodium 50 MCG TAB PO SCH (21:30)
[2019-11-03] MEDS: Lisinopril 10 MG TAB PO SCH (21:30)
[2019-11-03] MEDS: Nitroglycerin 2% Ointment 1 INCH/1 GM Packet TOP SCH (21:39)
[2019-11-04 04:53] LABS: #Eosinphils 0.1 thou/uL (0.0-0.7); #Lymphocytes 1.6 thou/uL (1.20-3.40); #Monocytes 0.4 thou/uL (0.11-0.59); #Neutrophils 2.9 thou/uL (1.40-6.50); %Basophils 0.7 % (0.0-1.0); %Eosinophils 2.5 % (0.0-10.0); %Lymphocytes 31.6 % (21.0-51.0); %Monocytes 7.1 % (0.0-10.0); %Neutrophils 58.1 % (42.0-75.0); Hemoglobin 12.3 g/dL (12.0-16.0); Mean Corpuscular HGB CONC 33.3 g/dL (32.0-36.0); Mean Corpuscular Hemoglobin 34.2 pg (27.0-31.0); Mean Platelet Volume 6.3 fL (7.4-10.4); Platelet Count 284 thou/uL (130-400); RBC Distribution Width 13.3 % (11.5-14.5); Red Blood Cell (RBC) Count 3.61 mill/uL (4.20-5.40); White Blood Cell (WBC) Count 5.1 thou/uL (4.8-10.8)
[2019-11-04 05:22] LABS: Calcium 8.7 mg/dL (7.8-10.44); Chloride 108 mmol/L (98-107); Potassium 4.1 mmol/L (3.5-5.1); Sodium 140 mmol/L (136-145)
[2019-11-04 05:23] LABS: Glucose 88 mg/dL (80-115); Triglycerides 73 mg/dL (Less than 150)
[2019-11-04 05:24] LABS: Anion Gap 12 mmol/L (10-20); Carbon Dioxide 24 mmol/L (23-31)
[2019-11-04 05:26] LABS: Calc. Creatinine Clearance 94 mL/min (70-130); Estimated GFR-MDRD 70
[2019-11-04 05:27] LABS: BUN (Urea Nitrogen) 16 mg/dL (9.8-20.1)
[2019-11-04 05:28] LABS: Cholesterol 222 mg/dl (< 200 Desired); HDL Cholesterol 56 mg/dL (>60 Neg Risk); LDL Cholesterol, Calculated 151 mg/dL
[2019-11-04] MEDS: Nitroglycerin 2% Ointment 1 INCH/1 GM Packet TOP SCH ×3 (07:22→19:58)
[2019-11-04] MEDS: Clopidogrel Bisulfate 75 MG TAB PO SCH (08:14)
[2019-11-04] MEDS: Aspirin 81 mg Enteric Coated Tablet PO SCH (08:14)
[2019-11-04] MEDS: Mesalamine DR 400 mg Capsule PO SCH (08:14)
[2019-11-04] MEDS: Enoxaparin Sodium 40 MG/0.4 ML SYRINGE SC SCH (08:14)
[2019-11-04] MEDS: azaTHIOprine 50 MG TAB PO SCH (08:14)
--- NOTE | 2019-11-04 09:50 | PDOC.HOSPP ---
- Subjective Encounter Date: 11/04/19 Encounter Time: 08:30 Subjective: Patient was seen today for follow up of chest pain. No events of chest pain overnight or this am. States she is still worried about her lack of stamina that she has had since her CVA in July 2018. - Objective Vital Signs & Weight: Vital Signs (12 hours) Temp Pulse Resp BP Pulse Ox 11/04/19 07:45 97.9 F 75 16 107/56 L 95 11/04/19 04:00 97.7 F 82 18 124/58 L 95 11/03/19 23:39 97.5 F L 71 16 118/56 L 96 Weight Weight 194 lb 11.2 oz I&O: 11/03/19 11/04/19 11/05/19 06:59 06:59 06:59 Intake Total 100 Balance 100 Result Diagrams: 11/04/19 04:44 11/04/19 04:44 Hospitalist ROS - Medication Medications: Active Medications Generic Name Dose Route Start Last Admin Trade Name Freq PRN Reason Stop Dose Admin Aspirin 81 mg 11/04/19 09:00 11/04/19 08:14 Ecotrin PO 81 mg DAILY GUSTAVO Administration Azathioprine 150 mg 11/04/19 09:00 11/04/19 08:14 Imuran PO 150 mg DAILY GUSTAVO Administration Clopidogrel Bisulfate 75 mg 11/04/19 09:00 11/04/19 08:14 Plavix PO 75 mg DAILY GUSTAVO Administration Enoxaparin Sodium 40 mg 11/04/19 09:00 11/04/19 08:14 Lovenox SC 40 mg 0900 GUSTAVO Administration Levothyroxine Sodium 50 mcg 11/03/19 21:00 11/03/19 21:30 Synthroid PO 50 mcg HS GUSTAVO Administration Lisinopril 10 mg 11/03/19 21:00 11/03/19 21:30 Zestril PO 10 mg HS GUSTAVO Administration Mesalamine 1,200 mg 11/04/19 09:00 11/04/19 08:[address] PO 1,200 mg DAILY GUSTAVO Administration Nitroglycerin 0.5 inch 11/03/19 22:00 11/04/19 07:22 Nitro-Bid 2% Ointment TOP Not Given Q8HR GUSTAVO Sodium Chloride 10 ml 11/03/19 21:00 11/04/19 08:36 Flush - Normal Saline IVF 10 ml Q12HR GUSTAVO Administration - Exam General Appearance: NAD, awake alert ENT: normocephalic atraumatic, moist mucosa Neck: supple, symmetric, no JVD, no lymphadenopathy Heart: RRR, no murmur, no gallops, no rubs Respiratory: CTAB, no wheezes, no rales, no ronchi Gastrointestinal: soft, non-tender, non-distended, normal bowel sounds Extremities: 1+ LE edema Neurological: cranial nerve grossly intact, no focal deficits Musculoskeletal: normal tone, normal strength Psychiatric: normal affect, normal behavior, A&O x 3 Hosp A/P (1) Chest pain Code(s): R07.9 - CHEST PAIN, UNSPECIFIED Status: Acute (2) CAD (coronary artery disease) Code(s): I25.10 - ATHSCL HEART DISEASE OF [place] CORONARY ARTERY W/O ANG PCTRS Status: Chronic (3) HTN (hypertension) Code(s): I10 - ESSENTIAL (PRIMARY) HYPERTENSION Status: Chronic Qualifiers: Hypertension type: essential hypertension Qualified Code(s): I10 - Essential (primary) hypertension (4) History of CVA (cerebrovascular accident) Code(s): Z86.73 - PRSNL HX OF TIA (TIA), AND CEREB INFRC W/O RESID DEFICITS Status: Chronic (5) Hypothyroidism Code(s): E03.9 - HYPOTHYROIDISM, UNSPECIFIED Status: Chronic (6) Ulcerative colitis Code(s): K51.90 - ULCERATIVE COLITIS, UNSPECIFIED, WITHOUT COMPLICATIONS Status: Chronic (7) Obesity (BMI 30-39.9) Code(s): E66.9 - OBESITY, UNSPECIFIED Status: Chronic - Plan * Chest pain: Troponins x 3 negative. No recurrent chest pain and unable to reproduce. Awaiting cardiology input. BNP added to am labs. * Continue to monitor on tele. * NPO since midnight for cardiology consult. * HTN: controlled on home medications currently with no need for PRN additions.
--- NOTE | 2019-11-04 15:05 | PDOC.HOSPP ---
- Subjective Encounter Date: 11/04/19 Encounter Time: 15:04 Subjective: Ms. Sosa was seen today in follow-up of chest pain. Today she says the chest pain has resolved. She notes some trembling in her left arm and leg off and on for the past month, no pain or weakness. No fever, no cough or congestion. - Objective Vital Signs & Weight: Vital Signs (12 hours) Temp Pulse Resp BP Pulse Ox 11/04/19 11:58 98.4 F 71 16 131/62 98 11/04/19 07:45 97.9 F 75 16 107/56 L 95 11/04/19 04:00 97.7 F 82 18 124/58 L 95 Weight Weight 194 lb 11.2 oz I&O: 11/03/19 11/04/19 11/05/19 06:59 06:59 06:59 Intake Total 100 Balance 100 Result Diagrams: 11/04/19 04:44 11/04/19 04:44 Hospitalist ROS - Medication Medications: Active Medications Generic Name Dose Route Start Last Admin Trade Name David PRN Reason Stop Dose Admin Aspirin 81 mg 11/04/19 09:00 11/04/19 08:14 Ecotrin PO 81 mg DAILY GUSTAVO Administration Azathioprine 150 mg 11/04/19 09:00 11/04/19 08:14 Imuran PO 150 mg DAILY GUSTAVO Administration Clopidogrel Bisulfate 75 mg 11/04/19 09:00 11/04/19 08:14 Plavix PO 75 mg DAILY GUSTAVO Administration Enoxaparin Sodium 40 mg 11/04/19 09:00 11/04/19 08:14 Lovenox SC 40 mg 0900 GUSTAVO Administration Levothyroxine Sodium 50 mcg 11/03/19 21:00 11/03/19 21:30 Synthroid PO 50 mcg HS GUSTAVO Administration Lisinopril 10 mg 11/03/19 21:00 11/03/19 21:30 Zestril PO 10 mg HS GUSTAVO Administration Mesalamine 1,200 mg 11/04/19 09:00 11/04/19 08:[address] PO 1,200 mg DAILY GUSTAVO Administration Nitroglycerin 0.5 inch 11/03/19 22:00 11/04/19 10:56 Nitro-Bid 2% Ointment TOP Not Given Q8HR GUSTAVO Sodium Chloride 10 ml 11/03/19 21:00 11/04/19 08:36 Flush - Normal Saline IVF 10 ml Q12HR GUSTAVO Administration - Exam Eye: PERRL Heart: RRR, no murmur, no gallops, no rubs, normal peripheral pulses Respiratory: CTAB, no wheezes, no rales, no ronchi, normal chest expansion Gastrointestinal: soft, non-tender, non-distended, normal bowel sounds Extremities: no cyanosis, no clubbing, no edema Extremities - other findings: + palpable posterior tibial pulses bilaterally Skin: normal turgor, no lesions, no rashes Musculoskeletal: no muscle wasting Hosp A/P (1) Chest pain Code(s): R07.9 - CHEST PAIN, UNSPECIFIED Status: Acute (2) Obesity (BMI 30-39.9) Code(s): E66.9 - OBESITY, UNSPECIFIED Status: Chronic (3) HLD (hyperlipidemia) Code(s): E78.5 - HYPERLIPIDEMIA, UNSPECIFIED Status: Chronic (4) HTN (hypertension) Code(s): I10 - ESSENTIAL (PRIMARY) HYPERTENSION Status: Chronic Qualifiers: Hypertension type: essential hypertension Qualified Code(s): I10 - Essential (primary) hypertension (5) History of CVA (cerebrovascular accident) Code(s): Z86.73 - PRSNL HX OF TIA (TIA), AND CEREB INFRC W/O RESID DEFICITS Status: Chronic - Plan * Chest pain- in patient with history of CAD and STENT placement in April of last year * Her troponins are negative * Await Cardiology evaluation * HTN- blood pressure is stable * Dyslipidemia- patient's LDL is not at goal- will add Lipitor * Left arm and Leg trembling- ? etiology, her circulation is clinically intact, as well as the Neurological exam is growly normal, with normal strength, sensation, and reflexes. Will Observe
--- NOTE | 2019-11-04 15:11 | CON ---
DATE OF CONSULTATION: 11/04/2019 REASON FOR CONSULTATION: Chest pain. HISTORY OF PRESENT ILLNESS: Ms. Sosa is very pleasant 64-year-old white female, who comes to the hospital for increased shortness of breath. She states that she has been feeling "bad" in the last few days with weakness and tightness on her chest. She states that she would stand up, walk around, feel dizzy and feel short of breath, so decided to come in for evaluation. She had similar symptoms back in July, but it was more shortness of breath back then. Heart catheterization was done. She was found to have severe intermediate ramus lesion. This was stented with a bare-metal stent, this was in April of 2019. When asked how long she had been feeling similar to this, she states that since her stroke in July of 2018, she has been feeling different. She has had several bouts with flare-ups of her ulcerative colitis and vertigo in the last few months. On my evaluation, she denies any chest pain, tightness, pressure. No shortness of breath. She has a lot of complaints of what has been going on with her health in the recent few months. PAST MEDICAL HISTORY: 1. Ulcerative colitis. 2. Hypertension. 3. CVA in July of 2018. 4. Hypothyroidism. 5. GERD. 6. Coronary artery disease status post stenting to the intermediate ramus. SURGICAL HISTORY: 1. Ganglion cyst removal in the right wrist. 2. Ovarian cyst removal laparoscopically. 3. Stenting to the IR, bare-metal stent in April 2019. FAMILY HISTORY: Noncontributory. SOCIAL HISTORY: Former tobacco and alcohol use, nothing for 20 years. No drugs. REVIEW OF SYSTEMS: A 12-point review of systems was done and was all negative unless stated in the history of present illness. OUTPATIENT MEDICATIONS: Include; 1. Mesalamine 1.2 g daily. 2. Vitamin D3. 3. Plavix 75 mg a day. 4. Aspirin 81 a day. 5. Imuran 150 mg a day. 6. Metoprolol succinate 50 mg a day. 7. Enalapril 10 mg a day. 8. Loperamide p.r.n. 9. Levothyroxine 50 mcg a day. ALLERGIES: SULFA DRUG GIVES HER HIVES. PHYSICAL EXAMINATION: VITAL SIGNS: Temperature 98.4, pulse 71, respiratory rate 16, saturating 98% on room air, blood pressure 131/62, however, her blood pressure has been ranging between 107 to 124. GENERAL: Awake, alert, and oriented x3, in no distress. HEENT: Normocephalic and atraumatic. NECK: Supple. LUNGS: Clear. CARDIOVASCULAR: S1, S2. No S3 or S4. No murmurs. ABDOMEN: Soft. Positive bowel sounds. EXTREMITIES: No edema. SKIN: Warm and dry. LABORATORY DATA: Laboratory work was reviewed. White count of 5, hemoglobin of 12, hematocrit of 37, platelet count of 284. Coags, D-dimer was negative. Chemistries, unremarkable except for total cholesterol of 222, triglycerides were 73, LDL was 151, HDL of 56. Troponin has been completely undetectable x3 and BNP was undetectable as well. Normal BUN and creatinine. ASSESSMENT: 1. Chest pain. 2. Shortness of breath. 3. Coronary artery disease, stable. No acute coronary syndrome. PLAN: 1. Would start statin drugs as her LDL is not at goal of less than 70. 2. Would risk stratify with a stress test. She had a bare metal stent, so she may be having in-stent restenoses. We will evaluate with nuclear stress test and then stress tomorrow. 3. Echocardiogram to be done. 4. Continue other medications and blood pressure seems to be well controlled currently. Thank you for letting us participate in the care of your patient. We will follow. Job ID: [id number]
[2019-11-04] MEDS: Lisinopril 10 MG TAB PO SCH (19:58)
[2019-11-04] MEDS: Levothyroxine Sodium 50 MCG TAB PO SCH (19:59)
[2019-11-05] MEDS ORDERED: Loperamide HCl 2 MG CAP PO SCH (05:00)
[2019-11-05] MEDS: Nitroglycerin 2% Ointment 1 INCH/1 GM Packet TOP SCH ×2 (06:06→14:19)
[2019-11-05] MEDS: Aspirin 81 mg Enteric Coated Tablet PO SCH (09:38)
[2019-11-05] MEDS: Mesalamine DR 400 mg Capsule PO SCH (09:38)
[2019-11-05] MEDS: Enoxaparin Sodium 40 MG/0.4 ML SYRINGE SC SCH (09:39)
[2019-11-05] MEDS: Clopidogrel Bisulfate 75 MG TAB PO SCH (09:39)
[2019-11-05] MEDS: azaTHIOprine 50 MG TAB PO SCH (09:39)
[2019-11-05] MEDS ORDERED: Loperamide HCl 2 MG CAP PO PRN (10:14)
--- NOTE | 2019-11-05 11:05 | PDOC.HOSPP ---
- Subjective Encounter Date: 11/05/19 Encounter Time: 09:45 Subjective: Ms. Sosa was seen as a follow up for chest pain this morning. She reports feeling great other than a few episodes of diarrhea which she states is her normal with her history of ulcerative colitis. She denies CP, shortness of breath, palpitations, or pain elsewhere last night and this morning. Her ECHO was completed last night and her stress test will be completed this morning. She is requesting immodium which she takes at home when she does have issues with diarrhea. - Objective Vital Signs & Weight: Vital Signs (12 hours) Temp Pulse Resp BP Pulse Ox 11/05/19 07:41 98.2 F 72 14 140/73 96 11/05/19 04:00 97.7 F 74 16 137/68 97 11/05/19 00:00 97.6 F 70 18 131/63 96 Weight Weight 194 lb 11.2 oz I&O: 11/04/19 11/05/19 11/06/19 06:59 06:59 06:59 Intake Total 100 960 Balance 100 960 Result Diagrams: 11/04/19 04:44 11/04/19 04:44 EKG Reviewed by me: Yes Hospitalist ROS - Medication Medications: Active Medications Generic Name Dose Route Start Last Admin Trade Name Freq PRN Reason Stop Dose Admin Aspirin 81 mg 11/04/19 09:00 11/05/19 09:38 Ecotrin PO 81 mg DAILY GUSTAVO Administration Azathioprine 150 mg 11/04/19 09:00 11/05/19 09:39 Imuran PO 150 mg DAILY GUSTAVO Administration Clopidogrel Bisulfate 75 mg 11/04/19 09:00 11/05/19 09:39 Plavix PO 75 mg DAILY GUSTAVO Administration Enoxaparin Sodium 40 mg 11/04/19 09:00 11/05/19 09:39 Lovenox SC 40 mg 0900 GUSTAVO Administration Levothyroxine Sodium 50 mcg 11/03/19 21:00 11/04/19 19:59 Synthroid PO 50 mcg HS GUSTAVO Administration Lisinopril 10 mg 11/03/19 21:00 11/04/19 19:58 Zestril PO 10 mg HS GUSTAVO Administration Mesalamine 1,200 mg 11/04/19 09:00 11/05/19 09:[address] PO 1,200 mg DAILY GUSTAVO Administration Metoprolol Succinate 50 mg 11/04/19 09:00 11/05/19 09:41 Toprol Xl PO Not Given DAILY GUSTAVO Nitroglycerin 0.5 inch 11/03/19 22:00 11/05/19 06:06 Nitro-Bid 2% Ointment TOP Not Given Q8HR GUSTAVO Sodium Chloride 10 ml 11/03/19 21:00 11/05/19 09:40 Flush - Normal Saline IVF 10 ml Q12HR GUSTAVO Administration - Exam General Appearance: NAD, awake alert Eye: PERRL Neck: supple, symmetric, no JVD, no lymphadenopathy Heart: RRR, no murmur, no gallops, diminshed peripheral pulses Respiratory: CTAB, no wheezes, no rales, normal chest expansion Gastrointestinal: soft, non-tender, non-distended Gastrointestinal - other findings: hyperactive bowel sounds Extremities: no cyanosis, no clubbing, 1+ LE edema Skin: normal turgor, no lesions, no rashes Neurological: cranial nerve grossly intact, no weakness, no focal deficits Psychiatric: normal affect, normal behavior Hosp A/P (1) Chest pain Code(s): R07.9 - CHEST PAIN, UNSPECIFIED Status: Acute (2) CAD (coronary artery disease) Code(s): I25.10 - ATHSCL HEART DISEASE OF [place] CORONARY ARTERY W/O ANG PCTRS Status: Chronic (3) HTN (hypertension) Code(s): I10 - ESSENTIAL (PRIMARY) HYPERTENSION Status: Chronic Qualifiers: Hypertension type: essential hypertension Qualified Code(s): I10 - Essential (primary) hypertension (4) History of CVA (cerebrovascular accident) Code(s): Z86.73 - PRSNL HX OF TIA (TIA), AND CEREB INFRC W/O RESID DEFICITS Status: Chronic (5) Hypothyroidism Code(s): E03.9 - HYPOTHYROIDISM, UNSPECIFIED Status: Chronic (6) Ulcerative colitis Code(s): K51.90 - ULCERATIVE COLITIS, UNSPECIFIED, WITHOUT COMPLICATIONS Status: Chronic (7) Obesity (BMI 30-39.9) Code(s): E66.9 - OBESITY, UNSPECIFIED Status: Chronic - Plan * Awaiting stress test this am * Continue to monitor on tele. * ECHO completed yesterday- awaiting report at this time * HTN: controlled on home medications currently with no need for PRN additions. * PRN immodium given due to episode of diarrhea
[2019-11-05] MEDS ORDERED: ADENOSINE 60 MG/20 ML VIAL ONE (12:11)
--- NOTE | 2019-11-05 12:49 | PDOC.CPN ---
- Subjective Date: 11/05/19 Time: 12:48 Interval history: No chest pain. Had her stress this morning and pending results. - Review of Systems General: denies: fever/chills, weight/appetite/sleep changes, night sweats, fatigue Respiratory: denies: cough, congestion, shortness of breath, exercise intolerance Cardiovascular: denies: chest pain, palpitation, edema, paroxysmal nocturnal dyspnea, orthopnea Gastrointestinal: denies: nausea, vomiting, diarrhea, constipation, abd pain, GI bleeding Musculoskeletal: denies: pain, tenderness, stiffness, swelling, arthritis/ arthralgias Neurological: denies: numbness, syncope, seizure, weakness - Objective Allergies/Adverse Reactions: Allergies Allergy/AdvReac Type Severity Reaction Status Date / Time Sulfa (Sulfonamide Allergy Hives Verified 09/28/19 15:11 Antibiotics) Visit Medications: Current Medications Acetaminophen (Tylenol) 650 mg PO Q4H PRN PRN Reason: Headache/Fever/Mild Pain (1-3) Aspirin (Ecotrin) 81 mg PO DAILY [facility] Last Admin: 11/05/19 09:38 Dose: 81 mg Azathioprine (Imuran) 150 mg PO DAILY [facility] Last Admin: 11/05/19 09:39 Dose: 150 mg Clopidogrel Bisulfate (Plavix) 75 mg PO DAILY [facility] Last Admin: 11/05/19 09:39 Dose: 75 mg Enoxaparin Sodium (Lovenox) 40 mg SC 0900 [facility] Last Admin: 11/05/19 09:39 Dose: 40 mg Hydralazine HCl (Apresoline) 10 mg SLOW IVP Q4H PRN PRN Reason: SBP > 180 and HR < 70 Levothyroxine Sodium (Synthroid) [address] [facility] Last Admin: 11/04/19 19:59 Dose: 50 mcg Lisinopril (Zestril) 10 mg PO HS [facility] Last Admin: 11/04/19 19:58 Dose: 10 mg Loperamide HCl (Imodium) 2 mg PO PRN PRN PRN Reason: Diarrhea/Loose Stools Last Admin: 11/05/19 12:03 Dose: 2 mg Mesalamine (Delzicol Dr) 1,200 mg PO DAILY [facility] Last Admin: 11/05/19 09:38 Dose: 1,200 mg Metoprolol Succinate (Toprol Xl) 50 mg PO DAILY [facility] Last Admin: 11/05/19 09:41 Dose: Not Given Nitroglycerin (Nitro-Bid 2% Ointment) 0.5 inch TOP Q8HR [facility] Last Admin: 11/05/19 06:06 Dose: Not Given Ondansetron HCl (Zofran Odt) 4 mg PO Q6H PRN PRN Reason: Nausea/Vomiting Sodium Chloride (Flush - Normal Saline) 10 ml IVF Q12HR [facility] Last Admin: 11/05/19 09:40 Dose: 10 ml Sodium Chloride (Flush - Normal Saline) 10 ml IVF PRN PRN PRN Reason: Saline Flush Vital Signs & Weight: Vital Signs Temp Pulse Resp BP BP Pulse Ox 11/05/19 12:00 98.7 F 99 18 120/67 100 11/05/19 07:41 98.2 F 72 14 140/73 96 11/05/19 04:00 97.7 F 74 16 137/68 97 Weight 194 lb 11.2 oz - Physical Exam General: alert & oriented x3 HEENT: mucus membranes moist Neck: supple neck Cardiac: regular rate and rhythm Lungs: normal breath sounds Neuro: grossly intact Abdomen: active bowel sounds Extremities: no edema Skin: clear Musculoskeletal: no pain - Labs Result Diagrams: 11/04/19 04:44 11/04/19 04:44 Troponin/CKMB Troponin I Less than 0.010 ng/mL (< 0.028) 11/03/19 19:31 - Telemetry Sinus rhythms and dysrhythmias: sinus rhythm - Assessment/Plan Assessment/Plan: 1. CAD, no ACS 2. Chest pain 3. Ulcerative colitis. PLAN: - Awaiting Echo and stress test results.
--- NOTE | 2019-11-05 14:24 | EKG ---
Test Reason : CHEST PAIN Blood Pressure : / mmHG Vent. Rate : 072 BPM Atrial Rate : 072 BPM P-R Int : 158 ms QRS Dur : 096 ms QT Int : 374 ms P-R-T Axes : 048 -22 -08 degrees QTc Int : 409 ms Normal sinus rhythm Nonspecific T wave abnormality Abnormal ECG Confirmed by MARTÍN SHAH, LIVIER ([id number]), photography editor DREAD DUMONT ([id number]) on 11/05/2019 2:23:32 PM Referred By: Confirmed By:LIVIER RESENDIZ MD
[2019-11-05] MEDS: Lisinopril 10 MG TAB PO SCH (20:35)
[2019-11-05] MEDS: Levothyroxine Sodium 50 MCG TAB PO SCH (20:35)
[2019-11-06 07:47] LABS: #Eosinphils 0.2 thou/uL (0.0-0.7); #Lymphocytes 1.9 thou/uL (1.20-3.40); #Monocytes 0.3 thou/uL (0.11-0.59); #Neutrophils 2.7 thou/uL (1.40-6.50); %Basophils 0.7 % (0.0-1.0); %Eosinophils 3.8 % (0.0-10.0); %Lymphocytes 36.7 % (21.0-51.0); %Monocytes 5.7 % (0.0-10.0); %Neutrophils 53.2 % (42.0-75.0); Hemoglobin 14.2 g/dL (12.0-16.0); Mean Corpuscular Hemoglobin 33.8 pg (27.0-31.0); Mean Platelet Volume 6.4 fL (7.4-10.4); Platelet Count 415 thou/uL (130-400); RBC Distribution Width 13.4 % (11.5-14.5); Red Blood Cell (RBC) Count 4.21 mill/uL (4.20-5.40); White Blood Cell (WBC) Count 5.1 thou/uL (4.8-10.8)
[2019-11-06 08:10] LABS: Anion Gap 15 mmol/L (10-20); BUN (Urea Nitrogen) 13 mg/dL (9.8-20.1); Calc. Creatinine Clearance 78 mL/min (70-130); Calcium 9.1 mg/dL (7.8-10.44); Carbon Dioxide 23 mmol/L (23-31); Chloride 106 mmol/L (98-107); Estimated GFR-MDRD 56; Glucose 153 mg/dL (80-115); Potassium 4.1 mmol/L (3.5-5.1); Sodium 140 mmol/L (136-145)
[2019-11-06] MEDS: Aspirin 81 mg Enteric Coated Tablet PO SCH (08:55)
[2019-11-06] MEDS: Mesalamine DR 400 mg Capsule PO SCH (08:56)
[2019-11-06] MEDS: Clopidogrel Bisulfate 75 MG TAB PO SCH (08:56)
[2019-11-06] MEDS: azaTHIOprine 50 MG TAB PO SCH (08:56)
[2019-11-06] MEDS: Enoxaparin Sodium 40 MG/0.4 ML SYRINGE SC SCH (08:57)
--- NOTE | 2019-11-06 09:02 | NM ---
NUCLEAR MEDICINE CARDIAC MYOCARDIAL PERFUSION SPECT EJECTION FRACTION STUDY WALL MOTION CINE: DATE: 11/06/2019 HISTORY: 64-year-old female with coronary artery disease and hypertension presents with chest pain TECHNIQUE: Number of days: 2 Rest study: Technetium 99m-sestamibi (Cardiolite) dose: 31.6 mCi Pharmacologic stress: Adenosine dose: 49.3 mg Stress study: Technetium 99m-sestamibi (Cardiolite) dose: 29.4 mCi FINDINGS: CARDIAC (MYOCARDIAL PERFUSION) SPECT There is a subtle, mild apparent small myocardial perfusion defect in the anteroseptal wall on the st ress images, not visualized on the rest images. EJECTION FRACTION STUDY Left ventricular EF = 69 % WALL MOTION CINE Normal IMPRESSION: Questionable mild reversible ischemia in the anteroseptal wall.
[2019-11-06 15:42] VITALS: BP 128/69; TEMP 98.1
--- NOTE | 2019-11-06 15:51 | PDOC.HOSPP ---
- Subjective Encounter Date: 11/06/19 Encounter Time: 15:49 Subjective: Ms. Sosa was seen today in follow-up of Chest pain. She says she feels better today. She has not had any chest pain. - Objective Vital Signs & Weight: Vital Signs (12 hours) Temp Pulse Resp BP BP Pulse Ox 11/06/19 15:41 98.1 F 76 16 128/69 96 11/06/19 11:38 97.8 F 88 16 123/75 97 11/06/19 08:52 97.6 F 86 16 126/63 98 11/06/19 04:00 98.0 F 65 14 119/92 H 98 Weight Weight 194 lb 11.2 oz I&O: 11/05/19 11/06/19 11/07/19 06:59 06:59 06:59 Intake Total 960 240 Balance 960 240 Result Diagrams: 11/06/19 07:26 11/06/19 07:26 Hospitalist ROS - Medication Medications: Active Medications Generic Name Dose Route Start Last Admin Trade Name Adamq PRN Reason Stop Dose Admin Aspirin 81 mg 11/04/19 09:00 11/06/19 08:55 Ecotrin PO 81 mg DAILY [facility] Administration Azathioprine 150 mg 11/04/19 09:00 11/06/19 08:56 Imuran PO 150 mg DAILY [facility] Administration Clopidogrel Bisulfate 75 mg 11/04/19 09:00 11/06/19 08:56 Plavix PO 75 mg DAILY [facility] Administration Enoxaparin Sodium 40 mg 11/04/19 09:00 11/06/19 08:57 Lovenox SC 40 mg 0900 [facility] Administration Levothyroxine Sodium 50 mcg 11/03/19 21:00 11/05/19 20:35 Synthroid PO 50 mcg HS GUSTAVO Administration Lisinopril 10 mg 11/03/19 21:00 11/05/19 20:35 Zestril PO 10 mg HS G[facility]O Administration Loperamide HCl 2 mg 11/05/19 10:14 11/05/19 12:03 Imodium PO 2 mg PRN PRN Administration Diarrhea/Loose Stools Mesalamine 1,200 mg 11/04/19 09:00 11/06/19 08:[address] PO 1,200 mg DAILY G[facility] Administration Metoprolol Succinate 50 mg 11/04/19 09:00 11/06/19 08:56 Toprol Xl PO 50 mg DAILY [facility] Administration Sodium Chloride 10 ml 11/03/19 21:00 11/06/19 12:42 Flush - Normal Saline IVF 10 ml Q12HR G[facility] Administration - Exam Eye: PERRL Heart: RRR, no murmur, no gallops, no rubs, normal peripheral pulses Respiratory: CTAB, no wheezes, no rales, no ronchi, normal chest expansion Gastrointestinal: soft, non-tender, non-distended, normal bowel sounds, no palpable masses, no hepatomegaly Extremities: no cyanosis, no edema Hosp A/P (1) Chest pain Code(s): R07.9 - CHEST PAIN, UNSPECIFIED Status: Acute (2) Obesity (BMI 30-39.9) Code(s): E66.9 - OBESITY, UNSPECIFIED Status: Chronic (3) HLD (hyperlipidemia) Code(s): E78.5 - HYPERLIPIDEMIA, UNSPECIFIED Status: Chronic (4) HTN (hypertension) Code(s): I10 - ESSENTIAL (PRIMARY) HYPERTENSION Status: Chronic Qualifiers: Hypertension type: essential hypertension Qualified Code(s): I10 - Essential (primary) hypertension (5) History of CVA (cerebrovascular accident) Code(s): Z86.73 - PRSNL HX OF TIA (TIA), AND CEREB INFRC W/O RESID DEFICITS Status: Chronic - Plan * Chest pain- stress test and Echo results noted * Await Cardiology opinion regarding the stress test * HTN- blood pressure is stable * Dyslipidemia-continue Lipitor * Disposition as per Cardiology
--- NOTE | 2019-11-06 17:06 | PDOC.CPN ---
- Subjective Date: 11/06/19 Time: 17:03 Interval history: She is doing well. She denies any more chets pain. She had her stress test and it showed anterolateral ischemia, very small area. - Review of Systems General: denies: fever/chills, weight/appetite/sleep changes, night sweats, fatigue Respiratory: denies: cough, congestion, shortness of breath, exercise intolerance Cardiovascular: denies: chest pain, palpitation, edema, paroxysmal nocturnal dyspnea, orthopnea Gastrointestinal: denies: nausea, vomiting, diarrhea, constipation, abd pain, GI bleeding Musculoskeletal: denies: pain, tenderness, stiffness, swelling, arthritis/ arthralgias Neurological: denies: numbness, syncope, seizure, weakness - Objective Allergies/Adverse Reactions: Allergies Allergy/AdvReac Type Severity Reaction Status Date / Time Sulfa (Sulfonamide Allergy Hives Verified 09/28/19 15:11 Antibiotics) Visit Medications: Current Medications Acetaminophen (Tylenol) 650 mg PO Q4H PRN PRN Reason: Headache/Fever/Mild Pain (1-3) Aspirin (Ecotrin) 81 mg PO DAILY [facility] Last Admin: 11/06/19 08:55 Dose: 81 mg Azathioprine (Imuran) 150 mg PO DAILY [facility] Last Admin: 11/06/19 08:56 Dose: 150 mg Clopidogrel Bisulfate (Plavix) 75 mg PO DAILY [facility] Last Admin: 11/06/19 08:56 Dose: 75 mg Enoxaparin Sodium (Lovenox) 40 mg SC 0900 [facility] Last Admin: 11/06/19 08:57 Dose: 40 mg Hydralazine HCl (Apresoline) 10 mg SLOW IVP Q4H PRN PRN Reason: SBP > 180 and HR < 70 Levothyroxine Sodium (Synthroid) 50 mcg PO HS [facility] Last Admin: 11/05/19 20:35 Dose: 50 mcg Lisinopril (Zestril) 10 mg PO HS [facility] Last Admin: 11/05/19 20:35 Dose: 10 mg Loperamide HCl (Imodium) 2 mg PO PRN PRN PRN Reason: Diarrhea/Loose Stools Last Admin: 11/05/19 12:03 Dose: 2 mg Mesalamine (Delzicol Dr) 1,200 mg PO DAILY [facility] Last Admin: 11/06/19 08:56 Dose: 1,200 mg Metoprolol Succinate (Toprol Xl) 50 mg PO DAILY [facility] Last Admin: 11/06/19 08:56 Dose: 50 mg Ondansetron HCl (Zofran Odt) 4 mg PO Q6H PRN PRN Reason: Nausea/Vomiting Ranolazine (Ranexa) 500 mg PO BID [facility] Sodium Chloride (Flush - Normal Saline) 10 ml IVF Q12HR [facility] Last Admin: 11/06/19 12:42 Dose: 10 ml Sodium Chloride (Flush - Normal Saline) 10 ml IVF PRN PRN PRN Reason: Saline Flush Vital Signs & Weight: Vital Signs Temp Pulse Resp BP BP Pulse Ox 11/06/19 15:41 98.1 F 76 16 128/69 96 11/06/19 11:38 97.8 F 88 16 123/75 97 11/06/19 08:52 97.6 F 86 16 126/63 98 Weight 194 lb 11.2 oz - Physical Exam General: alert & oriented x3 HEENT: mucus membranes moist Neck: supple neck Cardiac: regular rate and rhythm Lungs: normal breath sounds Neuro: grossly intact Abdomen: active bowel sounds Extremities: no edema Skin: clear Musculoskeletal: no pain - Labs Result Diagrams: 11/06/19 07:26 11/06/19 07:26 Troponin/CKMB Troponin I Less than 0.010 ng/mL (< 0.028) 11/03/19 19:31 - Telemetry Sinus rhythms and dysrhythmias: sinus rhythm - Assessment/Plan Assessment/Plan: 1. CAD, no ACS 2. Chest pain 3. Ulcerative colitis. PLAN: - Unremarkable echo. - Stres stest with small anterolateral ischemia which could correlate with IR stenosis recently stented with BMS. I spoke with her about possible LHC and PURNIMA if needed. She states she wants conservative management first. I think this is reasonable as her defect is small and she has been asymptomatic since admission Will add ranexa 500 mg BID and will re evaluate in 1 month. - May discharge home from cardiac perspective.
--- NOTE | 2019-11-06 18:43 | DIS ---
DATE OF ADMISSION: 11/03/2019 DATE OF DISCHARGE: 11/06/2019 DISCHARGE DISPOSITION: Home. PRIMARY CARE PHYSICIAN: Rebecca Hauser, DO DISCHARGE MEDICATIONS: Include; 1. Ranexa 500 mg p.o. b.i.d. 2. Aspirin 81 mg daily. 3. Metoprolol XL 50 mg daily. 4. Mesalamine 1.2 g daily. 5. Imodium 2 mg as directed. 6. Synthroid 50 mcg p.o. at bedtime. 7. Enalapril 10 mg at bedtime. 8. Plavix 75 mg daily. 9. Vitamin D3 of 1000 units p.o. daily. 10. Imuran 150 mg daily. IMAGING DONE DURING HOSPITAL STAY: The patient had an echocardiogram, which showed an ejection fraction estimated at 60% to 65%. There was grade 1/3 diastolic systolic dysfunction, some aortic valve sclerosis and small pleural effusion without tamponade. The patient had a nuclear stress test in which the ejection fraction was estimated at 69% with normal wall motion. There was a questionable area of mild reversible ischemia at the anterior septal wall. CODE STATUS: Full code. ALLERGIES: TO SULFA. HOSPITAL COURSE: Ms. Sosa is a pleasant 64-year-old female, who was admitted to the hospital after having problems with chest discomfort. The details of which are outlined in the history and physical. She has risk factors for coronary artery disease and as a result, was placed in observation. She was ruled out. She was evaluated by Cardiology and an echocardiogram as well as stress test was ordered. The echocardiogram was essentially negative. The stress test showed some equivocal findings with some possible reversible defect in the anterior septal wall. The patient was offered cardiac catheterization during this hospital stay, but due to the COVID-19 pandemic, she did not feel comfortable having it done here in the hospital now and preferred to wait later. As a result, she was placed on Ranexa and instructed to follow up with Dr. Dugan as instructed in order to have this testing done. She is also to follow up with her primary care physician in approximately 1 week. Job ID: [id number]
== END 2019-11-06 18:29 | disposition home or self-care (01) ==
LOC: ERS 12:07 → 2SE 14:36 → ERS 17:35
PROVIDERS: ADMIT Internal Medicine; ATTEND Internal Medicine
DX: R07.89 Other chest pain (principal); I25.10 Atherosclerotic heart disease of native coronary artery without angina pectoris; I10 Essential (primary) hypertension; K51.90 Ulcerative colitis, unspecified, without complications; E03.9 Hypothyroidism, unspecified; E78.5 Hyperlipidemia, unspecified; I35.8 Other nonrheumatic aortic valve disorders; J90 Pleural effusion, not elsewhere classified; F41.9 Anxiety disorder, unspecified; F32.9 Major depressive disorder, single episode, unspecified; E66.9 Obesity, unspecified; Z68.36 Body mass index [BMI] 36.0-36.9, adult; Z86.73 Personal history of transient ischemic attack (TIA), and cerebral infarction without residual deficits; Z87.891 Personal history of nicotine dependence; Z79.02 Long term (current) use of antithrombotics/antiplatelets; Z79.82 Long term (current) use of aspirin; Z79.899 Other long term (current) drug therapy; Z88.2 Allergy status to sulfonamides; Z95.5 Presence of coronary angioplasty implant and graft
CPT/HCPCS: 36415; 78452; 80048; 80061; 83880; 84484; 85025; 85379; 93005; 93017; 93306; 94760; 96372; A9500; G0378; J0153; J1650; J7500

== ENCOUNTER 2019-11-29 16:22 | Emergency (ER) | payer OTHER ==
[2019-11-29 19:06] LABS: Hemoglobin 12.8 g/dL (12.0-16.0); Mean Corpuscular HGB CONC 35.2 g/dL (32.0-36.0); Mean Corpuscular Hemoglobin 35.6 pg (27.0-31.0); Platelet Count 338 thou/uL (130-400); RBC Distribution Width 13.6 % (11.5-14.5); Red Blood Cell (RBC) Count 3.61 mill/uL (4.20-5.40); White Blood Cell (WBC) Count 5.5 thou/uL (4.8-10.8)
[2019-11-29 19:16] LABS: ALT (SGPT) 11 U/L (8-55); AST (SGOT) 24 U/L (5-34); Albumin 3.7 g/dL (3.4-4.8); Alkaline Phosphatase 76 U/L (40-110); Anion Gap 13 mmol/L (10-20); BUN (Urea Nitrogen) 16 mg/dL (9.8-20.1); Bilirubin, Total 0.4 mg/dL (0.2-1.2); Calc. Creatinine Clearance 0 mL/min (70-130); Calcium 8.6 mg/dL (7.8-10.44); Carbon Dioxide 26 mmol/L (23-31); Chloride 105 mmol/L (98-107); Estimated GFR-MDRD 63; Globulin 3.1 g/dL (2.4-3.5); Glucose 84 mg/dL (80-115); Lipase 9 U/L (8-78); Potassium 4.2 mmol/L (3.5-5.1); Protein, Total 6.8 g/dL (6.0-8.3); Sodium 140 mmol/L (136-145)
[2019-11-29 19:21] LABS: Band 14 % (5-11); Eosinophils 4 % (0-10); Lymphocytes 30 % (21-51); MDiff Complete? YES; Metamyelocyte 3 % (0-0); Neutrophil 44 % (42-75); Reactive Lymphocytes 5 % (0-10)
--- NOTE | 2019-11-29 20:46 | CT ---
CT ABDOMEN AND PELVIS WITH CONTRAST: 11/29/19 HISTORY: Abdominal pain. Ulcerative colitis and coronary artery disease. Blood in stool. COMPARISON: None. FINDINGS: Lung bases are clear. No pericardial effusion. Liver, spleen, pancreas, gallbladder are all normal. T he adrenal glands are unremarkable. The aortic contour is nonaneurysmal. There is marked thickening with loss of normal haustrations of the descending colon, splenic flexure, and portions of the sigmoid colon. There is circumferential submucosal fatty infiltration throughout the sigmoid, descending, and transverse colon. There is mild inflammatory stranding along the descending colon. There is increased mesenteric fat of the sigmoid. There is no macroperforation. There is a focal area of inflammation of the hepatic flexure. The bronwyn c trunk and superior mesenteric arteries are patent. No retroperitoneal or periaortic adenopathy. Mild facet arthrosis lower lumbar spine. No hydronephrosis. No abnormal renal enhancing mass. IMPRESSION: High grade descending and sigmoid colitis with mild hepatic flexure colitis. There is also extensive submucosal fatty infiltrate in descending and sigmoid colon which corresponds to patient's history o f ulcerative colitis. No evidence of macroperforation. No contained perforation or abscess. POS: HOME
== END 2019-11-29 23:22 | disposition home or self-care (01) ==
LOC: ERS 16:22
DX: K51.90 Ulcerative colitis, unspecified, without complications (principal); E03.9 Hypothyroidism, unspecified; I10 Essential (primary) hypertension; Z87.891 Personal history of nicotine dependence; Z79.899 Other long term (current) drug therapy; Z79.82 Long term (current) use of aspirin
CPT/HCPCS: 36415; 74177; 80053; 83690; 85025

== ENCOUNTER 2022-05-17 06:30 | Emergency (ER) | payer OTHER ==
[2022-05-17] MEDS ORDERED: Ondansetron PF 4 MG/2 ML Vial ONE (08:11)
[2022-05-17] MEDS ORDERED: Acetaminophen 500 MG TAB ONE (08:11)
[2022-05-17] MEDS ORDERED: Ketorolac Tromethamine 30 MG/ML VIAL ONE (08:11)
[2022-05-17 08:48] LABS: #Eosinphils 0.1 thou/uL (0.0-0.7); #Lymphocytes 1.5 thou/uL (1.20-3.40); #Monocytes 0.4 thou/uL (0.11-0.59); #Neutrophils 2.7 thou/uL (1.40-6.50); %Basophils 0.7 % (0.0-1.0); %Eosinophils 1.9 % (0.0-10.0); %Lymphocytes 30.9 % (21.0-51.0); %Monocytes 8.4 % (0.0-10.0); %Neutrophils 58.2 % (42.0-75.0); Hemoglobin 13.1 g/dL (12.0-16.0); Mean Corpuscular HGB CONC 34.4 g/dL (32.0-36.0); Mean Corpuscular Hemoglobin 35.8 pg (27.0-31.0); Mean Platelet Volume 6.3 fL (7.4-10.4); Platelet Count 305 10x3/uL (130-400); RBC Distribution Width 13.9 % (11.5-14.5); Red Blood Cell (RBC) Count 3.66 mill/uL (4.20-5.40); White Blood Cell (WBC) Count 4.7 10x3/uL (4.8-10.8)
[2022-05-17 09:08] LABS: ALT (SGPT) 15 U/L (8-55); AST (SGOT) 16 U/L (5-34); Albumin 4.2 g/dL (3.4-4.8); Alkaline Phosphatase 71 U/L (40-110); Anion Gap 11 mmol/L (10-20); BUN (Urea Nitrogen) 16 mg/dL (9.8-20.1); Bilirubin, Total 0.5 mg/dL (0.2-1.2); Calc. Creatinine Clearance 0 mL/min (70-130); Calcium 8.9 mg/dL (7.8-10.44); Carbon Dioxide 27 mmol/L (23-31); Chloride 105 mmol/L (98-107); Estimated GFR 63; Glucose 90 mg/dL (80-115); Lipase 13 U/L (8-78); Potassium 3.9 mmol/L (3.5-5.1); Protein, Total 7.2 g/dL (5.8-8.1); Sodium 139 mmol/L (136-145)
[2022-05-17 10:12] LABS: Bilirubin Negative (Negative); Blood, Urine Trace (Negative); Clarity Clear (Clear); Glucose, Urine (Dipstick) Normal (Negative); Ketone, Urine Negative (Negative); Leukocyte Negative Leu/uL (Negative); Nitrite Negative (Negative); Protein, Urine (Dipstick) Negative (Neg-Trace); RBC/HPF 0-3 HPF (0-3); Specific Gravity, Urine 1.007 (1.002-1.036); Urobilinogen Normal mg/dL (Less than 2); pH, Urine 5.5 (5.0-9.0)
[2022-05-17 10:13] LABS: Bacteria/HPF None Seen HPF (None Seen); Squamous Epithelial 0-3 HPF (0-3); WBC/HPF 0-3 HPF (0-3)
== END 2022-05-17 11:00 | disposition home or self-care (01) ==
LOC: ERS 06:30
DX: M54.50 Low back pain, unspecified (principal); E03.9 Hypothyroidism, unspecified; I10 Essential (primary) hypertension; Z87.891 Personal history of nicotine dependence; Z79.899 Other long term (current) drug therapy; Z79.82 Long term (current) use of aspirin
CPT/HCPCS: 36415; 71045; 74176; 80053; 81003; 81015; 83690; 84484; 85025; 93005; 96374; 96375; J1885; J2405

== ENCOUNTER 2024-01-22 12:44 | Emergency (ER) | payer OTHER ==
[2024-01-22] MEDS ORDERED: Cyclobenzaprine 10 MG TAB ONE (14:40)
[2024-01-22] MEDS ORDERED: Acetaminophen 325 MG TAB ONE (14:40)
[2024-01-22 15:11] LABS: #Basophils Less than 0.03 10x3/uL (0.0-0.2); %Basophils 0.3 % (0.0-1.0); %Eosinophils 1.2 % (0.0-10.0); %Lymphocytes 18.5 % (21.0-51.0); %Monocytes 7.2 % (0.0-10.0); %Neutrophils 72.5 % (42.0-75.0); Hematocrit 36.3 % (36.0-47.0); Hemoglobin 12.4 g/dL (12.0-16.0); Mean Corpuscular HGB CONC 34.2 g/dL (32.0-36.0); Mean Corpuscular Hemoglobin 35.5 pg (27.0-31.0); Mean Platelet Volume 8.8 fL (7.4-10.4); Platelet Count 346 10x3/uL (130-400); Red Blood Cell (RBC) Count 3.49 mill/uL (4.20-5.40)
[2024-01-22 15:55] LABS: ALT (SGPT) 11 U/L (8-55); AST (SGOT) 14 U/L (5-34); Albumin 3.7 g/dL (3.4-4.8); Alkaline Phosphatase 83 U/L (40-110); Anion Gap 17 mmol/L (10-20); BUN (Urea Nitrogen) 15 mg/dL (9.8-20.1); Bilirubin, Total 0.8 mg/dL (0.2-1.2); Calc. Creatinine Clearance 0 mL/min (70-130); Calcium 9.7 mg/dL (7.8-10.44); Carbon Dioxide 26 mmol/L (23-31); Chloride 101 mmol/L (98-107); Estimated GFR 64; Globulin 3.5 g/dL (2.4-3.5); Glucose 90 mg/dL (80-115); Potassium 3.6 mmol/L (3.5-5.1); Protein, Total 7.2 g/dL (5.8-8.1); Sodium 140 mmol/L (136-145)
[2024-01-22 16:00] LABS: Troponin I Less than 0.010 ng/mL (< 0.028)
== END 2024-01-22 16:25 | disposition home or self-care (01) ==
LOC: ERS 12:44
DX: S16.1XXA Strain of muscle, fascia and tendon at neck level, initial encounter (principal); E03.9 Hypothyroidism, unspecified; I10 Essential (primary) hypertension; X50.1XXA Overexertion from prolonged static or awkward postures, initial encounter; Z79.82 Long term (current) use of aspirin; Z79.899 Other long term (current) drug therapy
CPT/HCPCS: 36415; 71045; 72040; 80053; 84484; 85025; 93005